=== PATIENT | female | born 1960 | race Caucasian/White ===

== ENCOUNTER → 2016-06-21 | Day surgery (SDC) | payer BC, OTHER ==
[2016-06-20 16:21] VITALS: Ht 163.8 cm; Wt 52.3 kg
[~2016-06-21] VITALS: Ht 163.8 cm; Wt 52.3 kg
[~2016-06-21] MED LIST: ATROPINE SULFATE 0.1 MG/ML 5ML SYR IV PRN; EpHEDrine SULFATE INJ 50 MG/ML AMP IV PRN; LEVO75TA5 PO; LIDOCAINE HCL 2% 2 ML VIAL (20MG/ML) ONE; MIDAZOLAM HCL 1 MG/ML 2ML VIAL ONE; MULT-506 PO; ONDANSETRON INJ 2 MG/ML 2 ML VIAL ONE; PROPOFOL IV EMULSION 10 MG/ML 20 ML VIAL IV ONE; SODIUM CHLORIDE 0.9% 500ML 500 ML IV ONE
[2016-06-21 12:42] VITALS: TEMP 36.5
--- NOTE | 2016-06-21 12:46 | Endo History and Physical ---
History & Physical Date of Service: Jun 21, 2016. Chief Complaint: rectal bleeding, abdominal pain, ulcerative colitis Referring Physician: Dr. Sarah Jennings History of Present Illness 55 yo CF who presents for colonoscopy secondary to rectal bleeding, abdominal pain and history of ulcerative colitis. Past Surgical History Hx Cardiac Surgery: No Hx Internal Defibrillator: No Hx Pacemaker: No Hx Abdominal Surgery: Yes (C SECTION X 3) Hx of Implantable Prosthesis: No Hx Post-Op Nausea and Vomiting: No Hx Cancer Surgery: No Hx Thoracic Surgery: No Hx Orthopedic: No Hx Urinary Tract Surgery: No Family History Colon CA Social History Smoking Status: Never Smoker Hx Substance Use: No Hx Alcohol Use: No Allergies Coded Allergies: No Known Allergies (Verified , 06/21/16) Current Medications Reported Home Medications Medications Dose Route/Sig Max Daily Dose Days Date Category Multivitamin (Multivitamins) Tab 1 Tab PO QAM 06/20/16 Reported Levothyroxine Sodium 75 Mcg Tab 1 Tab PO QAM 06/20/16 Reported Vital Signs Weight (Kilograms): 52.27 Height (Feet): 5 Height (Inches): 4.5 Date Time Temp Pulse Resp B/P Pulse Ox O2 Delivery O2 Flow Rate FiO2 06/21/16 12:42 36.5 77 18 120/74 98 Room Air Physical Exam General Appearance: WD/WN, no apparent distress Respiratory/Chest: Auscultation: breath sounds normal Cardiovascular: Heart Auscultation: RRR Abdomen: Bowel Sounds: normal Inspection & Palpation: soft, non-distended, no tenderness, guarding & rebound Assessment and Plan Assessment: 55 yo CF who presents for colonoscopy secondary to rectal bleeding, abdominal pain and history of ulcerative colitis. Plan: Proceed with colonoscopy.
--- NOTE | 2016-06-21 13:10 | Discharge Instructions ---
Endoscopy Patient Instructions Date / Procedure(s) Performed Jun 21, 2016. Colonoscopy Allergy Information Coded Allergies: No Known Allergies (Verified , 06/21/16) Discharge Date / Findings Jun 21, 2016. Ulcerative Proctosigmoiditis Internal hemorrhoids Medication Instructions OK to resume all medications today as prescribed Reported Home Medications Medications Dose Route/Sig Max Daily Dose Days Date Category Multivitamin (Multivitamins) Tab 1 Tab PO QAM 06/20/16 Reported Levothyroxine Sodium 75 Mcg Tab 1 Tab PO QAM 06/20/16 Reported Provider Instructions Activity Restrictions - No exercising or heavy lifting for 24 hours. - Do not drink alcohol the day of the procedure. - Do not drive a car or operate machinery until the day after the procedure. - Do not make any important decisions or sign important papers in 24 hours after the procedure. Following Day: - Return to full activity which may include returning to work/school. Diet Start your diet with liquids and light foods (jello, soup, juice, toast). Then eat your usual diet if not nauseated. Treatment For Common After Affects For mild abdominal pain, bloating, or excessive gas: - Rest - Eat lightly - Lie on right side Follow-Up Information Follow-up with Dr. Sarah Jennings as scheduled Anesthesia Information What You Should Know You have had a procedure that required some medicine to reduce anxiety and discomfort. This treatment is called moderate sedation. After receiving the treatment, you may be sleepy, but you will be able to breathe on your own. The effects of the treatment may last for several hours. Follow these instructions along with Activity/Diet recommendations noted above: * Do NOT do anything where dizziness or clumsiness would be dangerous. * Rest quietly at home today, then you can be up and about tomorrow. * Have a responsible person stay with you the rest of today. * You may have had an I.V. today. If so, you may take the dressing off later today. Recommendations Call your doctor if: * Trouble breathing * Continuous vomiting for more than 24 hours * Temperature above 101 degrees * Severe abdominal pain or bloating * Pain not relieved by pain medicine ordered * There is increased drainage or redness from any incision * A large amount of rectal bleeding greater than 2-3 tablespoons. (If you had a polyp/s removed or have hemorrhoids, a small amount of blood - from the rectum is to be expected.) * You have any unanswered questions or concerns. IN THE EVENT OF A SERIOUS EMERGENCY, GO TO THE NEAREST EMERGENCY ROOM Your discharge instructions were prepared by provider Jose Cheatham. Patient Instructions Signature Page Shona Leonard Patient (or Guardian) Signature/Date: I have read and understand the instructions given to me by my caregivers. Caregiver/RN/Doctor Signature/Date: The above-named patient and/or guardian has received patient instructions on this date. + Original Patient Signature Page (only) stays with chart. Please make copy for patient.
--- NOTE | 2016-06-21 13:19 | GI REPORT ---
Procedure Date: 06/21/2016 12:48 PM Procedure: Colonoscopy Indications: Rectal bleeding, Suspected ulcerative colitis Medicines: Monitored Anesthesia Care Complications: No immediate complications. Estimated Blood Loss: Estimated blood loss: none. Procedure: Pre-Anesthesia Assessment: - Prior to the procedure, a History and Physical was performed, and patient medications and allergies were reviewed. The patient's tolerance of previous anesthesia was also reviewed. The risks and benefits of the procedure and the sedation options and risks were discussed with the patient. All questions were answered, and informed consent was obtained. Prior Anticoagulants: The patient has taken no previous anticoagulant or antiplatelet agents. ASA Grade Assessment: II - A patient with mild systemic disease. After reviewing the risks and benefits, the patient was deemed in satisfactory condition to undergo the procedure. After I obtained informed consent, the scope was passed under direct vision. Throughout the procedure, the patient's blood pressure, pulse, and oxygen saturations were monitored continuously. The On-site loaner was introduced through the anus and advanced to the terminal ileum. The colonoscopy was performed without difficulty. The patient tolerated the procedure well. The quality of the bowel preparation was good. The terminal ileum, ileocecal valve, appendiceal orifice, and rectum were photographed. Findings: Inflammation characterized by erythema, friability and confluent ulcerations was found in a continuous and circumferential pattern from the rectum to the sigmoid colon. The proximal descending colon, the transverse colon, the ascending colon and the cecum were spared. This was severe in severity. Biopsies were taken with a cold forceps for histology. Several random biopsies were obtained with cold forceps for histology randomly in the entire colon. Non-bleeding internal hemorrhoids were found during retroflexion. The hemorrhoids were small. Impression: - Inflammation was found from the rectum to the sigmoid colon secondary to proctosigmoid ulcerative colitis. Biopsied. - Non-bleeding internal hemorrhoids. - Several random biopsies were obtained in the entire colon. Recommendation: - Resume previous diet. - Taper prednisone. - Use Asacol HD 800 mg 2 tabs PO TID. - Await pathology results. - Return to GI office as previously scheduled. Jose Cheatham DO 06/21/2016 1:17:40 PM This report has been signed electronically. Note Initiated On: 06/21/2016 12:48 PM I attest to the content of the Intraoperative Record and orders documented therein, exceptions below
--- NOTE | 2016-06-21 13:20 | Anesthesiology Progress Note ---
Anesthesia Post Op Note Date & Time Jun 21, 2016 at 13:19 Vital Signs Pain Intensity: 3 Vital Signs Past 12 Hours Date Time Temp Pulse Resp B/P Pulse Ox O2 Delivery O2 Flow Rate FiO2 06/21/16 13:13 81 16 109/70 98 Room Air 06/21/16 12:42 36.5 77 18 120/74 98 Room Air Notes Mental Status: alert / awake / arousable, participated in evaluation Pt Amnestic to Procedure: Yes Nausea / Vomiting: adequately controlled Pain: adequately controlled Airway Patency, RR, SpO2: stable & adequate BP & HR: stable & adequate Hydration State: stable & adequate Anesthetic Complications: no major complications apparent
[2016-06-21 13:42] VITALS: BP 117/62; PULSE 81; O2SAT 99
== END | disposition home or self-care (01) ==
LOC: C.GI 12:10
PROVIDERS: ATTEND Internal Medicine
DX: K62.5 Hemorrhage of anus and rectum (principal); K51.90 Ulcerative colitis, unspecified, without complications; K52.9 Noninfective gastroenteritis and colitis, unspecified; K64.8 Other hemorrhoids; R10.9 Unspecified abdominal pain; E03.9 Hypothyroidism, unspecified; J45.909 Unspecified asthma, uncomplicated; Z80.0 Family history of malignant neoplasm of digestive organs; Z68.1 Body mass index [BMI] 19.9 or less, adult

== ENCOUNTER 2023-08-09 16:35 | Inpatient (IN) ==
--- NOTE | 2023-08-09 16:58 | Emergency Department Note ---
Impression & Plan Symptomatic anemia, Ulcerative colitis with rectal bleeding, Acute blood loss anemia ED Provider Note NAME: SERGE ISSA AGE: 62 SEX: F : 1960 ARRIVES VIA: Walk-In INFORMANT: Patient ED PROVIDER(S): Alessandro Juarez MD CHIEF COMPLAINT: Shortnes of breathe referred. PLAN: Disposition: Admit MEDICAL DECISION MAKING: The patient is a pleasant 62-year-old woman with past medical history of ulcerative colitis presents to the emergency department via walk-in referred from her GI office for worsening shortness of breath over the course of months in the setting of having ongoing daily bloody stool in the setting of her history of ulcerative colitis. Patient reports having numerous hospitalizations over the past year where she was found to be anemic and received blood transfusions and treated for sepsis. She denies any fevers, chills, cough, congestion. She denies nausea or vomiting. Of note, the patient did arrive to emergency department during time of high volume, acuity and prolonged emergency department waiting times. Critical pathways initiated from triage. On evaluation the patient is fatigued appearing, mildly dyspneic appearing but no distress, afebrile with stable vital signs. O2 saturation 97% on room air. She has moderate pallor. Abdomen is nontender. WBC is normal limits. Platelets 610, likely reactive. H/H 4.5/17.7 without recent values for comparison. Chemistry without metabolic acidosis. BUN is not elevated. LFTs are unremarkable. Iron is low. CT of the abdomen pelvis was performed and demonstrates findings consistent with patient's IBD/ulcerative colitis. I reviewed with the patient including his severely low hemoglobin and patient was consented for transfusion. 2 units PRBCs ordered to transfuse. Patient agrees with plan for admission for further management. Case was discussed with Corbin Duffy [facility], with Dr. Reyes, [facility] hospitalist who will evaluate the patient for admission. Further management per admitting team. Triage Nursing notes reviewed and agree them. Prior/external medical records reviewed Vital Signs: reviewed Differential diagnosis: Diverticulosis, AVM, coagulopathy, colitis, inflammatory bowel disease, malignancy, Su-Turner tear, esophagitis, peptic ulcer disease, variceal bleed, gastritis, epistaxis, fissure, hemorrhoids, as well as other pathologies. ER treatment provided: See below. Diagnostics interpreted by me: ECG: NSR, 97 bpm, no ectopy, no overt ST elevation or depression. Cardiac Monitoring: An order for continuous cardiac monitoring was placed and demonstrated NSR, 97 bpm, no ectopy. Laboratory studies: See below Imaging studies: See below Consultation(s): Case was discussed with Corbin Duffy, [facility], with Dr. Reyes, [facility] hospitalist who will evaluate the patient for admission. HPI: The patient is a pleasant 62-year-old woman with past medical history of ulcerative colitis presents to the emergency department via walk-in referred from her GI office for worsening shortness of breath over the course of months in the setting of having ongoing daily bloody stool in the setting of her history of ulcerative colitis. Patient reports having numerous hospitalizations over the past year where she was found to be anemic and received blood transfusions and treated for sepsis. She denies any fevers, chills, cough, congestion. She denies nausea or vomiting. ROS: See above HPI for pertinent positives & negatives. A total of 10 systems reviewed and were otherwise negative. VITALS:See Below PHYSICAL EXAMINATION: GENERAL: Awake, alert, fatigued-appearing, in no distress HENT: Normocephalic, atraumatic. Oropharynx with dry mucous membranes and otherwise unremarkable. EYES: Normal conjunctiva. Sclera non-icteric. NECK: Supple. No nuchal rigidity. FROM. No JVD. RESPIRATORY: Clear to auscultation. Mildly dyspneic appearing but no acute distress. CARDIAC: Regular rate, normal rhythm. Extremities warm and well perfused. Pulses equal. ABDOMEN: Soft, non-distended. No tenderness to palpation. No rebound or guarding. No masses. MUSCULOSKELETAL: Chest examination reveals no tenderness. The back is symmetrical on inspection without obvious abnormality. There is no CVA tenderness to palpation. No joint edema. LOWER EXTREMITIES: Calves are equal size bilaterally and non-tender. No edema. No discoloration. NEURO: Normal sensorium. No sensory or motor deficits noted. SKIN: Moderate pallor. No rash or jaundice noted. ED COURSE: Critical Care: I have personally spent greater than 45 minutes of critical care time in the direct management of this patient. This includes bedside care, interpretation of diagnostic studies, and testing, discussion with consultants, patient, and family members, and other required patient management activities. This 45 minutes is in excess of all separately billable procedures. Alessandro Juarez MD Past Med/Surg History Problem List (Updated 08/10/23 @ 02:40 by Alessandro Juarez MD) Acute blood loss anemia (Acute) Hyponatremia Atrial fibrillation Ulcerative colitis with rectal bleeding (Acute) Symptomatic anemia (Acute) Ulcerative colitis Medical History (Updated 08/10/23 @ 02:40 by Alessandro Juarez MD) ADHD Rectal bleeding reason for upcoming procedure. Abdominal pain reason for upcoming procedure History of COVID-19 total of 5 times. last had 01/2022 cold symptoms. no current issues Ulcerative colitis Hypothyroidism Restless leg syndrome Asthma ALLERGY INDUCED ASTHMA Surgical History History of lateral meniscus repair of right knee History of bilateral tubal ligation History of section X 3 History of colonoscopy Family History Other No family history of adverse response to anesthesia Social History Smoking Status: Never smoker Second Hand Exposure: No; Do You Dip or Chew Tobacco: No; Tobacco Cessation Education Requested by Patient: No Hx Alcohol Use: No Hx Substance Use: No Preferred Language: Greenlandic Communication Ability: Effective Superintendent Production Required: No Beliefs That Will Affect Care: None Current Living Situation: Spouse Current Living Situation Comment: lives at home with Other Information That Helps Us Care for You: No Feels Safe at Home: Yes Safety Concerns: Feels Safe At This Time Assistive Devices: Denture - Lower Allergies Allergies Allergy/AdvReac Type Severity Reaction Status Date / Time No Known Allergies Allergy Verified 08/09/23 14:57 Home Meds Home Medications Medication Instructions Recorded Confirmed albuterol sulfate 90 mcg/actuation 1 inh inhalation QID PRN SHORT OF 04/29/18 08/09/23 breath activated powder inhaler BREATH levothyroxine 50 mcg tablet 50 mcg PO QAM 05/24/20 08/09/23 fexofenadine 60 mg-pseudoephedrine 1 tab PO Q12H PRN seasonal 08/08/22 08/09/23 ER 120 mg tablet,ext.release,12 hr allergies (Anna-D 12 Hour) dextroamphetamine-amphetamine 20 20 mg PO BID PRN When Working 08/09/23 08/09/23 mg tablet dicyclomine 10 mg capsule 20 mg PO QID PRN Abdominal Pain 08/09/23 08/09/23 famotidine 20 mg tablet 20 mg PO BID 08/09/23 08/09/23 metoprolol tartrate 50 mg tablet 50 mg PO BID 08/09/23 08/09/23 (Lopressor) pantoprazole 40 mg tablet,delayed 40 mg PO QAM 08/09/23 08/09/23 release vedolizumab 300 mg intravenous 0 mg IV Q8WK 08/09/23 08/09/23 solution (Entyvio) Results & Data (ED) Vital Signs Vital Signs - 24 hr 08/09/23 16:38 08/09/23 17:15 08/09/23 17:36 Temperature 36.8 C Temperature Source Temporal Artery Scan Pulse Rate 97 H 102 H Pulse Rhythm Pulse Strength Respiratory Rate 18 Respiratory Effort / Characteristics Non-Labored Respiratory Depth Normal Respiratory Pattern Regular Blood Pressure 125/74 Blood Pressure Mean 91 Blood Pressure Position Pulse Oximetry 100 98 Oxygen Delivery Method Room Air Room Air Sepsis Recent Fever Within 48 Hours No Sepsis New/Unexplained Change in Mental Status N/A Sepsis Action Taken by Nursing No Action Required 08/09/23 18:18 08/09/23 18:36 08/09/23 18:51 Temperature 37.2 C 37.4 C Temperature Source Oral Oral Pulse Rate 105 H 93 H 93 H Pulse Rhythm Regular Regular Regular Pulse Strength Normal Normal Normal Respiratory Rate 20 19 19 Respiratory Effort / Characteristics Respiratory Depth Respiratory Pattern Blood Pressure 112/70 113/71 116/71 Blood Pressure Mean 84 85 86 Blood Pressure Position Sitting Lying Lying Pulse Oximetry 100 99 100 Oxygen Delivery Method Sepsis Recent Fever Within 48 Hours Sepsis New/Unexplained Change in Mental Status Sepsis Action Taken by Nursing Laboratory Data 08/09/23 16:59 08/09/23 16:59 Lab Results 08/09/23 08/09/23 08/09/23 Range/Units 16:59 17:50 17:56 WBC 7.82 (4.8-10.8) K/ul RBC 2.57 L (4.20-5.40) M/uL Hgb 4.5 L* (12.0-16.0) g/dl POC Hgb 5.1 L* (12.0-16.0) g/dl Hct 17.7 L* (37.0-47.0) % POC Hct 15 L* (37-47) % MCV 68.9 L (80.0-100.0) fL MCH 17.5 L (25.0-34.0) pg MCHC 25.4 L (32.0-36.0) g/dL RDW Std Deviation 48.0 H (36.4-46.3) fL RDW Coeff of Makenna 19.6 H (11.5-14.5) % Plt Count 610 H (130-400) K/uL MPV 8.5 L (9.4-12.4) fL Immature Gran % (Auto) 0.8 % Neut % (Auto) 53.9 % Lymph % (Auto) 27.0 % [place] % (Auto) 10.2 % Eos % (Auto) 7.2 % Baso % (Auto) 0.9 % Reticulocyte % (Auto) 3.87 H (0.50-2.00) % Neut # (Auto) 4.22 (1.40-6.50) K/uL Lymph # (Auto) 2.11 (1.20-3.40) K/uL [place] # (Auto) 0.80 H (0.11-0.59) K/uL Eos # (Auto) 0.56 H (0.00-0.50) K/uL Baso # (Auto) 0.07 (0.00-0.20) K/uL Reticulocyte # 0.090 (0.020-0.100) 10^6/uL Immature Gran # (Auto) 0.06 (0.01-0.20) K/uL Absolute Nucleated RBC 0.11 (0.00-0.12) K/uL Nucleated RBC % (auto) 1.4 % Polychromasia 1+ Hypochromasia Present Microcytosis Present Stomatocytes 1+ PT 10.9 (9.0-12.0) Seconds INR 1.0 (0.9-1.1) APTT 23 (21-31) Seconds PTT Ratio 0.9 POC Sodium 133 L (135-144) mmol/L Sodium 132 L (136-145) mmol/L POC Potassium 4.0 (3.3-5.0) mmol/L Potassium 4.0 (3.5-5.1) mmol/L POC Chloride 99 L (101-112) mmol/L Chloride 101 (98-107) mmol/L Carbon Dioxide 24 (21-32) mmol/L POC Total CO2 24 (24-31) mmol/L Anion Gap 7 (3-11) POC Anion Gap 15.0 L (16-25) mmol/L POC BUN 9 (7-18) mg/dl BUN 10 (6-23) mg/dl Creatinine 0.84 (0.6-1.2) mg/dl POC Creatinine 0.9 (0.6-1.3) mg/dl Est Cr Clr Drug Dosing 61.5 ml/min Est GFR ( Amer) 87.6 ml/min Est GFR (Non-Af Amer) 75.5 ml/min BUN/Creatinine Ratio 11.9 (10-20) Glucose 143 H (70-99(Fasting)) mg/dl POC Glucose (other) 124 H (70-99) mg/dl Calcium 8.5 L (8.6-10.3) mg/dl POC Ioniz Calcium Keeley 1.12 (1.12-1.32) mmol/l Iron 16 L (35-150) mcg/dl Unsaturated IBC 374 H (155-355) mcg/dl Transferrin 297 (200-360) mg/dl Ferritin 11.4 (8-388) ng/ml Total Bilirubin 0.4 (0.2-1.0) mg/dl AST 13 (13-39) U/L ALT 14 (7-52) U/L Alkaline Phosphatase 122 H (34-104) U/L Troponin I High Sens 11.7 (0-14) pg/ml Total Protein 7.3 (6.0-8.3) gm/dl Albumin 2.9 L (3.4-5.0) gm/dl Globulin 4.4 H (2.5-4.0) gm/dl Albumin/Globulin Ratio 0.7 L (0.9-2) Blood Type O Positive Blood Type Recheck Antibody Screen NEGATIVE Crossmatch See Detail 08/09/23 Range/Units 18:02 WBC (4.8-10.8) K/ul RBC (4.20-5.40) M/uL Hgb (12.0-16.0) g/dl POC Hgb (12.0-16.0) g/dl Hct (37.0-47.0) % POC Hct (37-47) % MCV (80.0-100.0) fL MCH (25.0-34.0) pg MCHC (32.0-36.0) g/dL RDW Std Deviation (36.4-46.3) fL RDW Coeff of Makenna (11.5-14.5) % Plt Count (130-400) K/uL MPV (9.4-12.4) fL Immature Gran % (Auto) % Neut % (Auto) % Lymph % (Auto) % [place] % (Auto) % Eos % (Auto) % Baso % (Auto) % Reticulocyte % (Auto) (0.50-2.00) % Neut # (Auto) (1.40-6.50) K/uL Lymph # (Auto) (1.20-3.40) K/uL [place] # (Auto) (0.11-0.59) K/uL Eos # (Auto) (0.00-0.50) K/uL Baso # (Auto) (0.00-0.20) K/uL Reticulocyte # (0.020-0.100) 10^6/uL Immature Gran # (Auto) (0.01-0.20) K/uL Absolute Nucleated RBC (0.00-0.12) K/uL Nucleated RBC % (auto) % Polychromasia Hypochromasia Microcytosis Stomatocytes PT (9.0-12.0) Seconds INR (0.9-1.1) APTT (21-31) Seconds PTT Ratio POC Sodium (135-144) mmol/L Sodium (136-145) mmol/L POC Potassium (3.3-5.0) mmol/L Potassium (3.5-5.1) mmol/L POC Chloride (101-112) mmol/L Chloride (98-107) mmol/L Carbon Dioxide (21-32) mmol/L POC Total CO2 (24-31) mmol/L Anion Gap (3-11) POC Anion Gap (16-25) mmol/L POC BUN (7-18) mg/dl BUN (6-23) mg/dl Creatinine (0.6-1.2) mg/dl POC Creatinine (0.6-1.3) mg/dl Est Cr Clr Drug Dosing ml/min Est GFR ( Amer) ml/min Est GFR (Non-Af Amer) ml/min BUN/Creatinine Ratio (10-20) Glucose (70-99(Fasting)) mg/dl POC Glucose (other) (70-99) mg/dl Calcium (8.6-10.3) mg/dl POC Ioniz Calcium K[place]ley (1.12-1.32) mmol/l Iron (35-150) mcg/dl Unsaturated IBC (155-355) mcg/dl Transferrin (200-360) mg/dl Ferritin (8-388) ng/ml Total Bilirubin (0.2-1.0) mg/dl AST (13-39) U/L ALT (7-52) U/L Alkaline Phosphatase (34-104) U/L Troponin I High Sens (0-14) pg/ml Total Protein (6.0-8.3) gm/dl Albumin (3.4-5.0) gm/dl Globulin (2.5-4.0) gm/dl Albumin/Globulin Ratio (0.9-2) Blood Type Blood Type Recheck O Positive Antibody Screen Crossmatch Administered Medications Acetaminophen (Ofirmev) 1,000 mg in 100 mls @ 400 mls/hr IV Q8H PRN PRN Reason: pain(1-4),headache,fever Stop: 08/12/23 19:19 Last Infusion: 08/09/23 23:55 Dose: Infused Documented By: Admin: 08/09/23 23:37 Dose: 400 mls/hr Documented By: ROXY Morphine Sulfate (Morphine Sulfate 2 Mg/Ml Carp) 2 mg IV Q4H PRN PRN Reason: Pain(5+) Stop: 08/23/23 19:19 Last Admin: 08/10/23 01:25 Dose: 2 mg Documented By: Admin: 08/09/23 21:29 Dose: 2 mg Documented By: CHERY Ondansetron HCl (Ondansetron Inj 2 Mg/Ml 2 Ml Vial) 4 mg IV Q6H PRN PRN Reason: Nausea And Vomiting Stop: 09/08/23 21:16 Last Admin: 08/10/23 01:24 Dose: 4 mg Documented By: ROXY Discontinued Medications Ioversol (Optiray 320 100ml) 94 ml IV ONCE ONE Stop: 08/09/23 18:10 Last Admin: 08/09/23 18:09 Dose: 94 ml Documented By: ADI Methylprednisolone (Methylprednisolone 125 Mg/2 Ml Vial) 40 mg IV NOW STA Stop: 08/09/23 19:35 Last Admin: 08/09/23 20:39 Dose: 40 mg Documented By: CHERY Ondansetron HCl (Ondansetron Inj 2 Mg/Ml 2 Ml Vial) Confirm Administered Dose 4 mg .ROUTE .STK-MED ONE Stop: 08/09/23 21:27 Last Admin: 08/09/23 21:29 Dose: 4 mg Documented By: CHERY Imaging Data Radiologist's Impression: Chest X-Ray 08/09/23 16:45 XR chest 1V not portable CLINICAL HISTORY: Chest pain, nonspecific TECHNIQUE: Single frontal radiograph of the chest was obtained. Comparison: None available at the time of this dictation. FINDINGS: No lines and tubes are seen. The cardiomediastinal silhouette is normal. The lungs are clear. No evidence of pleural effusion or pneumothorax. IMPRESSION: No acute chest disease. ACT 112: Negative or not required by law. Electronically signed by: Saul Bryan M.D. 08/09/2023 5:13 PM Abdomen/Pelvis CT 08/09/23 17:54 CT abd pelvis IV con only CLINICAL HISTORY: anemia, UC TECHNIQUE: Helical axial images of the abdomen and pelvis were obtained and displayed. Automated dose lowering techniques and/or adjustment according to patient size were utilized for this exam. This exam was performed with intravenous contrast. CT DOSE: 560.1 mGy.cm COMPARISON: None available at the time of this dictation. FINDINGS: Lower chest: No acute abnormality. Liver: Unremarkable. No focal lesions are seen. Gallbladder and biliary tree: No calcified gallstones. Normal caliber wall. No intra- or extrahepatic biliary ductal dilation. Pancreas: Unremarkable, no focal lesions. Spleen: Unremarkable. Adrenals: Unremarkable. Kidneys and ureters: There is wedge-shaped hypoenhancement in the right kidney, possibly associated with cortical scars. Bladder: Unremarkable. Reproductive organs: Unremarkable. Bowel: Patient was then thickened colonic johnson are seen from the rectum to the cecum. Lymph nodes Retroperitoneal: Unremarkable. Pelvic: Unremarkable. Mesenteric: Subcentimeter lymph nodes are noted. Peritoneum: Increased vascularity is seen about the colon. No free fluid. Vessels: Unremarkable. Abdominal wall: Unremarkable. Bones: Degenerative changes in the visualized spine. IMPRESSION: Findings compatible with colitis, likely inflammatory in this patient with history of ulcerative colitis. ACT 112: Negative or not required by law. Electronically signed by: Saul Bryan M.D. 08/09/2023 7:00 PM Discharge Plan Visit Data Chief Complaint: Shortness of Breath/Dyspnea Stated Complaint: SOB, REF BY DOC ED Provider: Alessandro Juarez Discharge Problem: Symptomatic anemia, Ulcerative colitis with rectal bleeding, Acute blood loss anemia Patient Disposition: Admitted As Inpatient Discharge Instructions Interventions: ED Discharge Assessment Last Done: 08/09/23 21:57 Discharge Problem: Ulcerative colitis with rectal bleeding Qualifiers: Ulcerative colitis location: unspecified ulcerative colitis location Qualified Code(s): K51.911 - Ulcerative colitis, unspecified with rectal bleeding
--- NOTE | 2023-08-09 17:14 | XRay Report ---
XR chest 1V not portable CLINICAL HISTORY: Chest pain, nonspecific TECHNIQUE: Single frontal radiograph of the chest was obtained. Comparison: None available at the time of this dictation. FINDINGS: No lines and tubes are seen. The cardiomediastinal silhouette is normal. The lungs are clear. No evid ence of pleural effusion or pneumothorax. IMPRESSION: No acute chest disease. ACT 112: Negative or not required by law. Electronically signed by: Saul Bryan M.D. 08/09/2023 5:13 PM
[2023-08-09 17:27] LABS: Hematocrit (blood only) 17.7 % (37.0-47.0); Hemoglobin 4.5 g/dl (12.0-16.0); Mean Corpuscular Hemoglobin 17.5 pg (25.0-34.0); Mean Corpuscular Hgb Conc 25.4 g/dL (32.0-36.0); Mean Corpuscular Volume 68.9 fL (80.0-100.0); Mean Platelet Volume 8.5 fL (9.4-12.4); Nucleated RBC # (auto) 0.11 K/uL (0.00-0.12); Nucleated RBC % (auto) 1.4 %; Platelet Count 610 K/uL (130-400); RDW Coefficient of Variation 19.6 % (11.5-14.5); Red Blood Count 2.57 M/uL (4.20-5.40); White Blood Count 7.82 K/ul (4.8-10.8)
[2023-08-09 17:30] LABS: Albumin Globulin Ratio 0.7 (0.9-2); Albumin Level 2.9 gm/dl (3.4-5.0); BUN Creatinine Ratio 11.9 (10-20); Bilirubin,Total 0.4 mg/dl (0.2-1.0); Calcium 8.5 mg/dl (8.6-10.3); Creatinine Clr Calc Pharmacy 61.5 ml/min; Est GFR (African American) 87.6 ml/min; Est GFR (Non-African American) 75.5 ml/min; Globulin 4.4 gm/dl (2.5-4.0); Total Protein 7.3 gm/dl (6.0-8.3)
[2023-08-09 17:37] LABS: Troponin I High Sensitivity 11.7 pg/ml (0-14)
[2023-08-09 17:40] LABS: Partial Thromboplastin Ratio 0.9; Partial Thromboplastin Time 23 Seconds (21-31); Prothrombin Time 10.9 Seconds (9.0-12.0)
[2023-08-09 17:45] LABS: Basophils # (auto) 0.07 K/uL (0.00-0.20); Basophils % (auto) 0.9 %; Eosinophils # (auto) 0.56 K/uL (0.00-0.50); Eosinophils % (auto) 7.2 %; Hypochromasia Present; Immature Granulocytes # (auto) 0.06 K/uL (0.01-0.20); Immature Granulocytes % (auto) 0.8 %; Lymphocytes # (auto) 2.11 K/uL (1.20-3.40); Microcytosis Present; Monocytes % (auto) 10.2 %; Neutrophils # (auto) 4.22 K/uL (1.40-6.50); Neutrophils % (auto) 53.9 %; Polychromasia 1+; Stomatocytes 1+
[2023-08-09] MEDS ORDERED: SODIUM CHLORIDE 0.9% 250 ML IV PRN (17:46)
[2023-08-09 18:09] LABS: iSTAT Creatinine 0.9 mg/dl (0.6-1.3); iSTAT Hemoglobin 5.1 g/dl (12.0-16.0); iSTAT Ionized Calcium 1.12 mmol/l (1.12-1.32)
[2023-08-09] MEDS: OPTIRAY 320 100ml IV ONE (18:09)
[2023-08-09 18:26] LABS: Reticulocyte % 3.87 % (0.50-2.00); Reticulocytes # 0.09 10^6/uL (0.020-0.100)
[2023-08-09 18:28] LABS: Ferritin 11.4 ng/ml (8-388)
--- NOTE | 2023-08-09 18:48 | History & Physical Report ---
Date of Service August 09, 2023 Assessment & Plan (1) Symptomatic anemia: Plan: Admit to the PCU on telemetry Currently stable and asymptomatic at rest Was sent to the [facility] ED today from the GI clinic due to multiple complaints including ongoing shortness of breath and dyspnea on exertion, generalized fatigue, and ongoing bright red blood per the rectum Found to have a hemoglobin of 4.5, down from 11.4 as of 08/08/2022 CT of the abdomen pelvis with IV con is consistent with acute ulcerative colitis flare and was read as negative for other acute findings. Patient has been having symptoms consistent with Crohn's flare for multiple months, so this is not surprising that hemoglobin has continued to fall Was consented for blood and ordered a total of 3 units packed red blood cells in the emergency department Continue with transfusion at this time we will obtain post transfusion CBC after her third unit is complete, transfuse for hemoglobin of 8 or higher at this time as she is still having ongoing rectal bleeding Will start 40 mg IV Solu-Medrol 3 times daily with first dose on admission for UC flare Lower suspicion for upper GI bleed at this time as she has been without epigastric pain, nausea/vomiting, melanotic stool. For now we will continue 40 mg IV pantoprazole daily for ulcer prophylaxis GI consult has been placed Will start as needed IV Tylenol and IV morphine for pain N.p.o. with sips/chips for now Bilateral SCDs for DVT prophylaxis CBC, CMP, mag, PT/INR (2) Ulcerative colitis with rectal bleeding: Plan: Continue 40 mg IV Solu-Medrol 3 times daily for now GI consulted and placed Patient instructed to avoid NSAIDs moving forward Rest of care per symptomatic anemia plan (3) Atrial fibrillation: Plan: Patient reports that she was diagnosed with new onset atrial fibrillation at the beginning of this year Patient reports that she was started on an anticoagulant shortly after diagnosis but then had subsequent large GI bleed while in [place] Patient is currently on normal sinus rhythm, continue to monitor on telemetry for now Will obviously need to hold systemic anticoagulation at this time Could consider Holter monitor on discharge as there will need to be further discussions with cardiology moving forward for risk/benefits of systemic anticoagulation Will hold her oral metoprolol for now while n.p.o., if needed can start IV Lopressor, however, will need to be cautious with aggressively treating tachycardia on admission as she is experiencing mild reactive tachycardia with her hemoglobin of 4.5 (4) Hyponatremia: Plan: Sodium of 132 today, will chloride noted to be 99 Patient appears dehydrated and malnourished on exam, likely because her oral intake has been very poor with her ongoing gastrointestinal issues She is not on diuretics She does not appear volume overloaded Would monitor in a.m. sodium level after ongoing transfusions, continue workup if sodium is not improving (5) Hypothyroidism: Plan: Continue levothyroxine when able to resume p.o. intake (6) Acute blood loss anemia: Plan Patient was discussed with Dr. Reyes at the time of admission History of Present Illness Chief Complaint: SOB Primary Care Provider: Saturnino Warner PA-C Shona is a 62-year-old female with a past medical history significant for ulcerative colitis (has not yet started Entyvio transfusions due to multiple social/insurance issues over the past year), hypothyroidism, and reported diagnosis of atrial fibrillation at an outside hospital who was sent to the [facility] ED from the [facility] GI clinic on 08/09/2023 due to ongoing complaints of shortness of breath, ongoing rectal bleeding, and malaise. She was noted to be tachycardic on arrival at 102 but otherwise stable. Labs are significant for hemoglobin of 4.5 (down from 11.4 as of 08/08/2022), hematocrit of 17, MCV of 68, MCHC of 25, platelet count of 610, reticulocyte percentage of 3.7, sodium of 132, iron of 16, unsaturated iron binding capacity of 374. Chest x-ray was read as negative for acute findings. CT of the abdomen pelvis with IV Contrast was read as consistent with ulcerative colitis flare, but was read as otherwise negative for acute findings. EKG shows normal sinus rhythm with an age undetermined inferior infarct but was negative for acute ST segment or T wave changes. Prior to admission the patient was consented for blood and ordered on initial 3 units of packed red blood cells to be transfused. Patient was lying in bed at time of exam no acute distress, she appears very pale, her is sitting bedside, history is obtained from both. She explains that she had stopped taking her mesalamine because she did not feel as though it was helping. She reports that she was admitted to an outside hospital at the beginning of February 2023 and was diagnosed with new onset atrial fibrillation. She was reportedly started on anticoagulation and had a large GI bleed shortly after while in [place]. She has been off anticoagulation since. She confirms she has not been on any treatment for ulcerative colitis since beginning of this year as she has evidence for insurance issues. She has been having ongoing lower abdominal pain consistent with previous UC flares. When asked what she was using for pain control she explains that she tried Tylenol first but this was ineffective. She and her explained that the patient has been taking approximately 9 tabs of Advil daily for at least the past 2 weeks. I explained to her that she needs to avoid all NSAIDs with her history, she expressed understanding. Denies recent fever, chills, chest pain, cough, dysuria, hematuria, melena, and recent trauma. She has been experiencing significant dyspnea on exertion and bright red blood in her stool. She confirms multiple times that she has not had melanotic/dark stool. Denies recent nausea/vomiting/hematemesis. She is a full code and her is her primary decision-maker if she cannot make decisions for self. Please refer to Dr. Reyes's attestation for any changes to the treatment plan Allergies Allergy/AdvReac Type Severity Reaction Status Date / Time No Known Allergies Allergy Verified 08/09/23 14:57 Home Medications Medication Instructions Recorded Confirmed Type albuterol sulfate 90 mcg/actuation 1 inh inhalation QID PRN SHORT OF 04/29/18 08/09/23 History breath activated powder inhaler BREATH levothyroxine 50 mcg tablet 50 mcg PO QAM 05/24/20 08/09/23 History fexofenadine 60 mg-pseudoephedrine 1 tab PO Q12H PRN seasonal 08/08/22 08/09/23 History ER 120 mg tablet,ext.release,12 hr allergies (Anna-D 12 Hour) dextroamphetamine-amphetamine 20 20 mg PO BID PRN When Working 08/09/23 08/09/23 History mg tablet dicyclomine 10 mg capsule 20 mg PO QID PRN Abdominal Pain 08/09/23 08/09/23 History famotidine 20 mg tablet 20 mg PO BID 08/09/23 08/09/23 History metoprolol tartrate 50 mg tablet 50 mg PO BID 08/09/23 08/09/23 History (Lopressor) pantoprazole 40 mg tablet,delayed 40 mg PO QAM 08/09/23 08/09/23 History release vedolizumab 300 mg intravenous 0 mg IV Q8WK 08/09/23 08/09/23 History solution (Entyvio) Past Med/Surg History Problem List (Updated 08/09/23 @ 21:50 by Yury Reyes MD) Acute blood loss anemia Hyponatremia Atrial fibrillation Ulcerative colitis with rectal bleeding Symptomatic anemia Ulcerative colitis Medical History (Updated 08/09/23 @ 21:50 by Yury Reyes MD) ADHD Rectal bleeding reason for upcoming procedure. Abdominal pain reason for upcoming procedure History of COVID-19 total of 5 times. last had 01/2022 cold symptoms. no current issues Ulcerative colitis Hypothyroidism Restless leg syndrome Asthma ALLERGY INDUCED ASTHMA Surgical History History of lateral meniscus repair of right knee History of bilateral tubal ligation History of section X 3 History of colonoscopy Family History Other No family history of adverse response to anesthesia Social History Smoking Status: Never smoker Second Hand Exposure: Yes (hx - as a child); Do You Dip or Chew Tobacco: No; Hx Alcohol Use: Yes Alcohol type: wine Hx Substance Use: No Preferred Language: French Communication Ability: Effective Mapping Engineer Required: No Beliefs That Will Affect Care: None Current Living Situation: Family Feels Safe at Home: Yes Assistive Devices: Glasses Physical Exam Physical Exam: Physical Exam: General: In no acute distress, stated age, very pale and chronically ill a ppearing but non-toxic HEENT: Normocephalic, atraumatic, no scleral icterus, pupils around round, symmetrical, and reactive to light, pale palpebral conjunctivae, moist mucus membranes, trachea midline, no thyromegaly Chest/Pulm: No respiratory distress, symmetrical chest expansion, clear breath sounds throughout Cardiac: RRR, no murmurs noted Abdomen: Negative for ascites and bruising, normoactive bowel sounds, soft, tender to palpation in the BL lower abdominal park, otherwise non-tender, no rebound tenderness noted Musculoskeletal: Symmetrical and without signs of acute trauma, upper and lower extremities with full ROM, no atrophy, spasticity, or flaccidity Extremities: Radial, dorsalis pedis, and posterior tibial pulses are intact and symmetrical, no edema noted in the BL LE's Skin: Pale, dry, no rashes , lesions, or scars noted Neuro: Alert and oriented to person, place, month, year, and president, no focal defects, no tremors noted Psych: No acute distress, calm and cooperative during the exam Results & Data Results & Data Vital Signs (Past 12 Hours) Vital Signs Temp Pulse Resp BP Pulse Ox O2 Del Method 08/09/23 18:36 37.4 C 93 H 19 113/71 99 08/09/23 18:18 37.2 C 105 H 20 112/70 100 08/09/23 17:36 102 H 08/09/23 17:15 98 Room Air 08/09/23 16:38 36.8 C 97 H 18 125/74 100 Room Air Laboratory Results Abnormal lab results 08/09/23 08/09/23 08/09/23 Range/Units 16:59 17:50 17:56 RBC 2.57 L (4.20-5.40) M/uL Hgb 4.5 L* (12.0-16.0) g/dl POC Hgb 5.1 L* (12.0-16.0) g/dl Hct 17.7 L* (37.0-47.0) % POC Hct 15 L* (37-47) % MCV 68.9 L (80.0-100.0) fL MCH 17.5 L (25.0-34.0) pg MCHC 25.4 L (32.0-36.0) g/dL RDW Std Deviation 48.0 H (36.4-46.3) fL RDW Coeff of Maken[place] 19.6 H (11.5-14.5) % Plt Count 610 H (130-400) K/uL MPV 8.5 L (9.4-12.4) fL Reticulocyte % (Auto) 3.87 H (0.50-2.00) % [place] # (Auto) 0.80 H (0.11-0.59) K/uL Eos # (Auto) 0.56 H (0.00-0.50) K/uL POC Sodium 133 L (135-144) mmol/L Sodium 132 L (136-145) mmol/L POC Chloride 99 L (101-112) mmol/L POC Anion Gap 15.0 L (16-25) mmol/L Glucose 143 H (70-99(Fasting)) mg/dl POC Glucose (other) 124 H (70-99) mg/dl Calcium 8.5 L (8.6-10.3) mg/dl Iron 16 L (35-150) mcg/dl Unsaturated IBC 374 H (155-355) mcg/dl Alkaline Phosphatase 122 H (34-104) U/L Albumin 2.9 L (3.4-5.0) gm/dl Globulin 4.4 H (2.5-4.0) gm/dl Albumin/Globulin Ratio 0.7 L (0.9-2) Crossmatch See Detail Diagnostic Findings Chest X-Ray 08/09/23 16:45 XR chest 1V not portable CLINICAL HISTORY: Chest pain, nonspecific TECHNIQUE: Single frontal radiograph of the chest was obtained. Comparison: None available at the time of this dictation. FINDINGS: No lines and tubes are seen. The cardiomediastinal silhouette is normal. The lungs are clear. No evidence of pleural effusion or pneumothorax. IMPRESSION: No acute chest disease. ACT 112: Negative or not required by law. Electronically signed by: Saul Bryan M.D. 08/09/2023 5:13 PM Abdomen/Pelvis CT 08/09/23 17:54 CT abd pelvis IV con only CLINICAL HISTORY: anemia, UC TECHNIQUE: Helical axial images of the abdomen and pelvis were obtained and displayed. Automated dose lowering techniques and/or adjustment according to patient size were utilized for this exam. This exam was performed with intravenous contrast. CT DOSE: 560.1 mGy.cm COMPARISON: None available at the time of this dictation. FINDINGS: Lower chest: No acute abnormality. Liver: Unremarkable. No focal lesions are seen. Gallbladder and biliary tree: No calcified gallstones. Normal caliber wall. No intra- or extrahepatic biliary ductal dilation. Pancreas: Unremarkable, no focal lesions. Spleen: Unremarkable. Adrenals: Unremarkable. Kidneys and ureters: There is wedge-shaped hypoenhancement in the right kidney, possibly associated with cortical scars. Bladder: Unremarkable. Reproductive organs: Unremarkable. Bowel: Patient was then thickened colonic johnson are seen from the rectum to the cecum. Lymph nodes Retroperitoneal: Unremarkable. Pelvic: Unremarkable. Mesenteric: Subcentimeter lymph nodes are noted. Peritoneum: Increased vascularity is seen about the colon. No free fluid. Vessels: Unremarkable. Abdominal wall: Unremarkable. Bones: Degenerative changes in the visualized spine. IMPRESSION: Findings compatible with colitis, likely inflammatory in this patient with history of ulcerative colitis. ACT 112: Negative or not required by law. Electronically signed by: Saul Bryan M.D. 08/09/2023 7:00 PM ECG Additional Comments: Normal sinus rhythm Inferior infarct , age undetermined Abnormal ECG No previous ECGs available Code Status & VTE Plan Code Status Full code VTE Prophylaxis Plan VTE Prophylaxis will be ordered: Yes Supervising Physician Co-Signing Physician Notes I personally saw and examined the patient. I verified all espana points and agree with Corbin Duffy PA-C with the following exceptions and/or additions: 62 year old female with poorly compliant with ulcerative colitis treatment (trying to get her on Entyvio). Present to the ER on advice of her commercial illustrator for 2 weeks of progressive worsening shortness of breath and tiredness all the time. Noted to be significantly anemic in the ER. O/E Pale appearing, HS RRR, no murmurs, Chest CTAB, mild lower abdominal pain on palpation without distension or rigidity A/P Acute on chronic GI bleed, acute blood loss anemia - suspect due to her ulcerative colitis and will start solu-medrol 40mg IV q8h and consult GI, Aim Hgb > 7, transfuse 3 units and repeat level. PG Care Time/CCT Total # of Minutes Spent Total Time Spent with Patient: Total time spent is greater than 50% in coordination of care (as documented) at patient's floor/unit and/or counseling patient: Coding [place] [address] INT INP/OBS CARE 3/75MIN Patient Type Established Medical Decision Making High Complexity Diagnoses Symptomatic anemia D64.9 Ulcerative colitis with rectal bleeding K51.911 Atrial fibrillation I48.91 Hyponatremia E87.1 Hypothyroidism E03.9 Acute blood loss anemia D62
--- NOTE | 2023-08-09 19:03 | CT Scan Report ---
CT abd pelvis IV con only CLINICAL HISTORY: anemia, UC TECHNIQUE: Helical axial images of the abdomen and pelvis were obtained and displayed. Automated dose lowering techniques and/or adjustment according to patient size were utilized for this exam. This e xam was performed with intravenous contrast. CT DOSE: 560.1 mGy.cm COMPARISON: None available at the time of this dictation. FINDINGS: Lower chest: No acute abnormality. Liver: Unremarkable. No focal lesions are seen. Gallbladder and biliary tree: No calcified gallstones. Normal caliber wall. No intra- or extrahepatic biliary ductal dilation. Pancreas: Unremarkable, no focal lesions. Spleen: Unremarkable. Adrenals: Unremarkable. Kidneys and ureters: There is wedge-shaped hypoenhancement in the right kidney, possibly associated w ith cortical scars. Bladder: Unremarkable. Reproductive organs: Unremarkable. Bowel: Patient was then thickened colonic johnson are seen from the rectum to the cecum. Lymph nodes Retroperitoneal: Unremarkable. Pelvic: Unremarkable. Mesenteric: Subcentimeter lymph nodes are noted. Peritoneum: Increased vascularity is seen about the colon. No free fluid. Vessels: Unremarkable. Abdominal wall: Unremarkable. Bones: Degenerative changes in the visualized spine. IMPRESSION: Findings compatible with colitis, likely inflammatory in this patient with history of ulcerative coli tis. ACT 112: Negative or not required by law. Electronically signed by: Saul Bryan M.D. 08/09/2023 7:00 PM
[2023-08-09] MEDS: methylPREDNISolone 125 MG/2 ML VIAL IV STA (20:39)
[2023-08-09] MEDS: ONDANSETRON INJ 2 MG/ML 2 ML VIAL ONE (21:29)
[2023-08-09] MEDS: MoRPHine SULFATE 2 MG/ML CARP IV PRN (21:29)
[2023-08-09] MEDS: ACETAMINOPHEN 1,000 MG/100 ML VIAL IV PRN (23:37)
[2023-08-10] MEDS: ONDANSETRON INJ 2 MG/ML 2 ML VIAL IV PRN (01:24)
[2023-08-10 03:58] LABS: Albumin Globulin Ratio 0.7 (0.9-2); Albumin Level 2.8 gm/dl (3.4-5.0); BUN Creatinine Ratio 13.5 (10-20); Bilirubin,Total 1.3 mg/dl (0.2-1.0); Calcium 8.3 mg/dl (8.6-10.3); Creatinine Clr Calc Pharmacy 72.7 ml/min; Est GFR (African American) 102.1 ml/min; Est GFR (Non-African American) 88.1 ml/min; Globulin 4.3 gm/dl (2.5-4.0); Magnesium 2.1 mg/dl (1.7-2.4); Potassium 4.1 mmol/L (3.5-5.1); Total Protein 7.1 gm/dl (6.0-8.3)
[2023-08-10 04:02] LABS: Prothrombin Time 10.9 Seconds (9.0-12.0)
[2023-08-10 04:26] LABS: Hematocrit (blood only) 25.8 % (37.0-47.0); Hemoglobin 7.9 g/dl (12.0-16.0); Mean Corpuscular Hemoglobin 22.6 pg (25.0-34.0); Mean Corpuscular Hgb Conc 30.6 g/dL (32.0-36.0); Mean Corpuscular Volume 73.9 fL (80.0-100.0); Mean Platelet Volume 8.5 fL (9.4-12.4); Nucleated RBC # (auto) 0.08 K/uL (0.00-0.12); Nucleated RBC % (auto) 2.1 %; Platelet Count 442 K/uL (130-400); RDW Coefficient of Variation 21.1 % (11.5-14.5); RDW Standard Deviation 56.4 fL (36.4-46.3); Red Blood Count 3.49 M/uL (4.20-5.40); White Blood Count 3.84 K/ul (4.8-10.8)
[2023-08-10] MEDS ORDERED: SODIUM CHLORIDE 0.9% 250 ML IV PRN ×2 (05:25→05:26)
--- NOTE | 2023-08-10 07:21 | Electrocardiogram Report ---
Test Reason : Blood Pressure : / mmHG Vent. Rate : 097 BPM Atrial Rate : 097 BPM P-R Int : 142 ms QRS Dur : 078 ms QT Int : 356 ms P-R-T Axes : 071 -25 041 degrees QTc Int : 452 ms Normal sinus rhythm possible Inferior infarct , age undetermined Abnormal ECG No previous ECGs available Confirmed by John Paul Briones ([id number]) on 08/10/2023 7:21:04 AM Referred By: Irineo Cano Confirmed By:Donovan Briones
[2023-08-10] MEDS: methylPREDNISolone 40 MG in SYRINGE 0 ML IV SCH (08:32)
[2023-08-10] MEDS ORDERED: methylPREDNISolone 125 MG/2 ML VIAL IV SCH (09:00)
[2023-08-10 10:32] LABS: Hemoglobin 9.3 g/dl (12.0-16.0); Mean Corpuscular Hemoglobin 23.4 pg (25.0-34.0); Mean Corpuscular Volume 75.4 fL (80.0-100.0); Mean Platelet Volume 8.3 fL (9.4-12.4); Nucleated RBC # (auto) 0.09 K/uL (0.00-0.12); Nucleated RBC % (auto) 1.1 %; Platelet Count 426 K/uL (130-400); RDW Coefficient of Variation 19.9 % (11.5-14.5); RDW Standard Deviation 53.8 fL (36.4-46.3); Red Blood Count 3.98 M/uL (4.20-5.40)
[2023-08-10] MEDS ORDERED: PANTOprazole 40 MG in SYRINGE 0 ML IV SCH (11:00)
[2023-08-10] MEDS: PANTOprazole 40 MG in SYRINGE 0 ML IV SCH (12:17)
[2023-08-10] MEDS ORDERED: 1.2 MICRON FILTER 1 EACH IV ONE (13:48)
--- NOTE | 2023-08-10 14:56 | Hospitalist Progress Note ---
Date of Service August 10, 2023 Assessment & Plan (1) Symptomatic anemia: Plan: Patient found to have profoundly low hemoglobin upon arrival to ED on 08/09/2023 of 4.5. She was experiencing symptoms related to anemia including SOB, dyspnea on exertion, fatigue, BRBPR. She was also consuming a large amount of NSAIDs, up to 9 Advil per day for her abdominal pain but endorsed no melena, N/V. -PCU on telemtry -Reviewed labs 08/09: hgb 9.3, plt 426, INR 1 -reviewed iron panel 08/08: Fe 16, transferrin 297, ferritin 11.4 -reviewed CTAP 08/08: consistent with UC flare and negative for any other acute findings. -s/p 3 units PRBCs -IV tylenol and IV morphine as needed for pain -Patient's diet was advanced to as tolerated -will plan to repeat CBC and CMP in AM. (2) Ulcerative colitis with rectal bleeding: Plan: Patient with previous diagnosis of UC and follows with [facility] GI outpatient. Patient currently awaiting Entyvio approval. She was previously on mesalamine but did not feel it helped her symptoms so she stopped taking it. -s/p colonoscopy 07/2022: left sided UC. inflammation found from rectum to descending colon (severe) -GI recommending IV Remicade inpatient -Follow up with nurse navigator on 08/10 for recommendations regarding outpatient medication approval -Entyvio has not been approved by patients insurance thus far. She has been waiting on this for many months now and states her insurance changed in process. -Avoid NSAIDs completely moving forward -Continue 40mg IV Solu-Medrol 3 times daily -Monitor stool for worsening BRB (3) Atrial fibrillation: Plan: Per patient, she was diagnosed with new onset A fib in 02/2023. She was started on anticoagulation but then developed large GI bleed at hospital in [place]. -Hold anticoagulation in event of ongoing GI bleeding -Consider Holter monitor upon discharge and cardiology discussion regarding risks/benefits of systemic anticoagulation -Patient placed back on regular diet and can resume metoprolol 08/10. (4) Hyponatremia: Plan: Likely due to dehydration and malnourishment. Oral intake has been very poor with ongoing GI issues. -Reviewed sodium 08/09: decreased at 130 -ordered AM BMP for 08/10 (5) Hypothyroidism: Plan: Will resume levothyroxine 50mcg daily on 08/10. Plan Discussed case with GI. Diet: regular DVT prophylaxis: bilateral SCDs Code status: full Disposition: PCU on telemetry Admission and Anticipated Discharge Date Admission Date: August 09, 2023 Subjective Patient seen and examined this afternoon at bedside. Patient was tearful at time of encounter. She reports to be not feeling well since about 12/2022. She states she has been in and out of hospital for various infections and anemia. She had 4 bowel movements today. The 1st two did contain blood but states latest 2 bowel movements were brown in color. She states any time she eats she defecates. She is still reporting shortness of breath w/w/o exertion. She was stable at 96 O2 sat on room air. She did report abdominal pain that is slightly worse than typical. She does experience abdominal pain on a daily basis. Case was discussed with GI who is recommending IV Remicade inpatient. Physical Exam 2 Constitutional: WD/WN, vitals as above Eyes: PERRL, conjunctivae normal, anicteric sclerae ENMT: external ear and nose normal, oropharynx normal Respiratory: normal respiratory effort, lungs clear to auscultation Cardiovascular: RRR, no murmur, no edema Gastrointestinal (Abdomen): + bowel sounds, tenderness to palpation in lower abdominal quadrants. Skin: no rashes, warm and dry Neurologic: PERRL, EOMI, accommodation nl, no face palsy, no dysarthria Psychiatric: A+Ox3, euthymic affect Results & Data Results & Data Vital Signs (Past 12 Hours) Vital Signs Temp Pulse Pulse Resp BP BP Pulse Ox 08/10/23 11:38 36.4 C L 93 H 18 110/78 96 08/10/23 08:53 100 H 08/10/23 08:30 36.6 C 79 18 121/84 100 08/10/23 08:10 36.6 C 79 18 121/84 100 08/10/23 07:33 37.0 C 84 13 128/76 100 08/10/23 07:10 37 C 84 18 125/70 100 08/10/23 06:40 37 C 84 17 128/76 100 08/10/23 06:15 36.4 C 88 17 113/85 99 08/10/23 06:05 36.4 C L 79 18 133/92 99 O2 Del Method O2 Flow Rate 08/10/23 11:38 Room Air 08/10/23 08:53 08/10/23 08:30 0 08/10/23 08:10 08/10/23 07:33 Room Air 08/10/23 07:10 08/10/23 06:40 08/10/23 06:15 08/10/23 06:05 Laboratory Results 08/10/23 10:06 08/10/23 03:07 Diagnostic Findings Chest X-Ray 08/09/23 16:45 XR chest 1V not portable IMPRESSION: No acute chest disease. Electronically signed by: Saul Bryan M.D. 08/09/2023 5:13 PM Abdomen/Pelvis CT 08/09/23 17:54 CT abd pelvis IV con only IMPRESSION: Findings compatible with colitis, likely inflammatory in this patient with history of ulcerative colitis. Electronically signed by: Saul Bryan M.D. 08/09/2023 7:00 PM PG Care Time/CCT Total # of Minutes Spent Total Time Spent with Patient: Total time spent is greater than 50% in coordination of care (as documented) at patient's floor/unit and/or counseling patient: Coding Level of Care Code 86320 SUB INP/OBS CARE 3/50MIN Diagnoses Symptomatic anemia D64.9 Ulcerative colitis with rectal bleeding K51.911 Ulcerative colitis location: unspecified ulcerative colitis location Atrial fibrillation, unspecified type I48.91 Atrial fibrillation type: unspecified Hyponatremia E87.1 Hypothyroidism, unspecified type E03.9 Hypothyroidism type: unspecified (2) Ulcerative colitis with rectal bleeding Ulcerative colitis location: unspecified ulcerative colitis location Qualified Code(s): K51.911 - Ulcerative colitis, unspecified with rectal bleeding (3) Atrial fibrillation Atrial fibrillation type: unspecified Qualified Code(s): I48.91 - Unspecified atrial fibrillation (5) Hypothyroidism Hypothyroidism type: unspecified Qualified Code(s): E03.9 - Hypothyroidism, unspecified
--- NOTE | 2023-08-10 19:02 | XRay Report ---
KUB HISTORY: Acute generalized abdominal pain worsening abdominal pain COMPARISON: CT 08/09/2023 FINDINGS: Air-filled loops of large and small bowel are noted with small bowel loops measuring up to 3.4 cm. No renal calculi. No ureteral calculi. No pneumoperitoneum or pneumatosis. Mild lumbar levos coliosis. No fracture. IMPRESSION: Air-filled loops of large and small bowel suggestive of probable ileus. No pneumoperitoneum. ACT 112: Negative or not required by law. The above report was generated using voice recognition software. It may contain grammatical, syntax o r spelling errors. Electronically signed by: Kali Núñez M.D. 08/10/2023 7:00 PM
[2023-08-10 20:32] LABS: Hematocrit (blood only) 29.3 % (37.0-47.0); Hemoglobin 9.3 g/dl (12.0-16.0); Mean Corpuscular Hemoglobin 23.7 pg (25.0-34.0); Mean Corpuscular Hgb Conc 31.7 g/dL (32.0-36.0); Mean Corpuscular Volume 74.6 fL (80.0-100.0); Mean Platelet Volume 8.5 fL (9.4-12.4); Nucleated RBC % (auto) 1.1 %; Platelet Count 434 K/uL (130-400); RDW Coefficient of Variation 19.8 % (11.5-14.5); RDW Standard Deviation 53.3 fL (36.4-46.3); Red Blood Count 3.93 M/uL (4.20-5.40)
[2023-08-10] MEDS: MoRPHine SULFATE 2 MG/ML CARP IV STA (20:45)
[2023-08-10] MEDS: PROCHLORPERAZINE 10 MG in SYRINGE 8 ML IV ONE (20:56)
[2023-08-11 01:13] LABS: Hematocrit (blood only) 29.1 % (37.0-47.0); Mean Corpuscular Hemoglobin 23.1 pg (25.0-34.0); Mean Corpuscular Hgb Conc 30.9 g/dL (32.0-36.0); Mean Corpuscular Volume 74.8 fL (80.0-100.0); Mean Platelet Volume 8.6 fL (9.4-12.4); Nucleated RBC # (auto) 0.09 K/uL (0.00-0.12); Nucleated RBC % (auto) 1.1 %; Platelet Count 380 K/uL (130-400); RDW Coefficient of Variation 20.1 % (11.5-14.5); RDW Standard Deviation 53.6 fL (36.4-46.3); Red Blood Count 3.89 M/uL (4.20-5.40); White Blood Count 7.95 K/ul (4.8-10.8)
[2023-08-11] MEDS: LEVOTHYROXINE SODIUM 50 MCG TABLET PO SCH (05:40)
[2023-08-11 07:23] LABS: Hematocrit (blood only) 28.3 % (37.0-47.0); Hemoglobin 8.8 g/dl (12.0-16.0); Mean Corpuscular Hemoglobin 23.3 pg (25.0-34.0); Mean Corpuscular Hgb Conc 31.1 g/dL (32.0-36.0); Mean Corpuscular Volume 75.1 fL (80.0-100.0); Mean Platelet Volume 8.8 fL (9.4-12.4); Platelet Count 365 K/uL (130-400); RDW Coefficient of Variation 20.4 % (11.5-14.5); RDW Standard Deviation 54.2 fL (36.4-46.3); Red Blood Count 3.77 M/uL (4.20-5.40); White Blood Count 9.98 K/ul (4.8-10.8)
[2023-08-11 07:43] LABS: Albumin Globulin Ratio 0.6 (0.9-2); Albumin Level 2.7 gm/dl (3.4-5.0); BUN Creatinine Ratio 16.9 (10-20); Bilirubin,Total 0.4 mg/dl (0.2-1.0); Calcium 8.8 mg/dl (8.6-10.3); Creatinine Clr Calc Pharmacy 75.8 ml/min; Est GFR (African American) 107.3 ml/min; Est GFR (Non-African American) 92.6 ml/min; Globulin 4.3 gm/dl (2.5-4.0)
--- NOTE | 2023-08-11 13:15 | Hospitalist Progress Note ---
Date of Service August 11, 2023 Assessment & Plan (1) Symptomatic anemia: Plan: Patient found to have profoundly low hemoglobin upon arrival to ED on 08/09/2023 of 4.5. She was experiencing symptoms related to anemia including SOB, dyspnea on exertion, fatigue, BRBPR. She was also consuming a large amount of NSAIDs, up to 9 Advil per day for her abdominal pain but endorsed no melena, N/V. -PCU on telemtry -Reviewed labs 08/10: hgb 8.8, MCV 75.1, plt 365 -hgb downtrended to 8.8 overnight. Plan to repeat hgb at 1400. -reviewed iron panel 08/10: Fe 15, transferrin sat 4%, TIBC 334 -reviewed CTAP 08/08: consistent with UC flare and negative for any other acute findings. -evening of 08/09, patient reported more severe abdominal pain. Ordered KUB which reviewed and revealed concerning findings of ileus but no free air visualized -dose of IV Venofer given 08/10 due to iron deficiency anemia -s/p 3 units PRBCs -IV tylenol and IV morphine as needed for pain -Patient on regular diet -will plan to repeat CBC and CMP in AM. (2) Ulcerative colitis with rectal bleeding: Plan: Patient with previous diagnosis of UC and follows with [facility] GI outpatient. Patient currently awaiting Entyvio approval. She was previously on mesalamine but did not feel it helped her symptoms so she stopped taking it. -s/p colonoscopy 07/2022: left sided UC. inflammation found from rectum to descending colon (severe) -GI recommending IV Remicade inpatient - pharmacy states medication will be too expensive for patient, will hold off on this. -Follow up with nurse navigator on 08/10 for recommendations regarding outpatient medication approval -Entyvio has not been approved by patients insurance thus far. She has been waiting on this for many months now and states her insurance changed in process. -GI to reach out to office on 08/10 to see status of Entyvio infusions -Avoid NSAIDs completely moving forward -Continue 40mg IV Solu-Medrol 3 times daily -Monitor stool for worsening bright red blood (3) Atrial fibrillation: Plan: Per patient, she was diagnosed with new onset A fib in 02/2023. She was started on anticoagulation but then [facility] [place]. -Hold anticoagulation in event of ongoing GI bleeding -Consider Holter monitor upon discharge and cardiology discussion regarding risks/benefits of systemic anticoagulation -Patient placed back on regular diet and resumed metoprolol 08/10. (4) Hyponatremia: Plan: Likely due to dehydration and malnourishment. Oral intake has been very poor with ongoing GI issues. -Reviewed sodium 08/10: improved to 132 Will continue to monitor on daily AM labs Plan Chronic conditions: Hypothyroidism: levothyroxine 50mcg daily Discussed case with GI. Diet: regular DVT prophylaxis: bilateral SCDs Code status: full Disposition: PCU on telemetry Admission and Anticipated Discharge Date Admission Date: August 09, 2023 Subjective Patient seen and examined this morning at bedside. She reports minimal improvement in her symptoms today. She has had 3 bloody BM's this morning. She states everytime she eats she will have a BM. Despite this she does report her appetite has been good. She states she had an episode of vomiting last night following her dinner. She believes she ate too fast. She denied hematemesis/coffee-ground emesis. She continues to experience significant abdominal pain. She states morphine does help her symptoms and if she uses it prior to eating, she notes she can tolerate her diet more. She denies chest pain/shortness of breath. Physical Exam 2 Constitutional: WD/WN, vitals as above Eyes: PERRL, conjunctivae normal, anicteric sclerae ENMT: external ear and nose normal, oropharynx normal Respiratory: normal respiratory effort, lungs clear to auscultation Cardiovascular: RRR, no murmur, no edema Gastrointestinal (Abdomen): +bowel sounds, generalized tenderness to palpation Skin: no rashes, warm and dry Neurologic: PERRL, EOMI, accommodation nl, no face palsy, no dysarthria Psychiatric: A+Ox3, euthymic affect Results & Data Results & Data Vital Signs (Past 12 Hours) Vital Signs Temp Pulse Resp BP Pulse Ox O2 Del Method 08/11/23 11:34 37.0 C 92 H 18 135/88 97 Room Air 08/11/23 07:26 36.9 C 91 H 18 137/88 97 Room Air 08/11/23 02:23 36.4 C L 83 18 134/85 98 Room Air Laboratory Results 08/11/23 07:01 08/11/23 07:01 Diagnostic Findings KUB X-Ray 08/10/23 17:58 IMPRESSION: Air-filled loops of large and small bowel suggestive of probable ileus. No pneumoperitoneum. Electronically signed by: Kali Núñez M.D. 08/10/2023 7:00 PM PG Care Time/CCT Total # of Minutes Spent Total Time Spent with Patient: Total time spent is greater than 50% in coordination of care (as documented) at patient's floor/unit and/or counseling patient: Coding Level of Care Code 79080 SUB INP/OBS CARE 3/50MIN Diagnoses Symptomatic anemia D64.9 Ulcerative colitis with rectal bleeding K51.911 Ulcerative colitis location: unspecified ulcerative colitis location Atrial fibrillation, unspecified type I48.91 Atrial fibrillation type: unspecified Hyponatremia E87.1 (2) Ulcerative colitis with rectal bleeding Ulcerative colitis location: unspecified ulcerative colitis location Qualified Code(s): K51.911 - Ulcerative colitis, unspecified with rectal bleeding (3) Atrial fibrillation Atrial fibrillation type: unspecified Qualified Code(s): I48.91 - Unspecified atrial fibrillation
[2023-08-11] MEDS: IRON SUCROSE 200 MG in 0.9 % SODIUM CHLORIDE 100 ML IV ONE (14:06)
[2023-08-11 14:31] LABS: Hematocrit (blood only) 29.9 % (37.0-47.0); Hemoglobin 9.2 g/dl (12.0-16.0); Mean Corpuscular Hemoglobin 23.3 pg (25.0-34.0); Mean Corpuscular Hgb Conc 30.8 g/dL (32.0-36.0); Mean Corpuscular Volume 75.7 fL (80.0-100.0); Mean Platelet Volume 8.6 fL (9.4-12.4); Nucleated RBC # (auto) 0.06 K/uL (0.00-0.12); Nucleated RBC % (auto) 0.6 %; Platelet Count 339 K/uL (130-400); RDW Standard Deviation 55.5 fL (36.4-46.3); Red Blood Count 3.95 M/uL (4.20-5.40); White Blood Count 10.23 K/ul (4.8-10.8)
[2023-08-11] MEDS: METOPROLOL TARTRATE 25 MG TAB PO SCH (20:29)
[2023-08-12 08:00] LABS: Hematocrit (blood only) 30.9 % (37.0-47.0); Hemoglobin 9.4 g/dl (12.0-16.0); Mean Corpuscular Hemoglobin 23.4 pg (25.0-34.0); Mean Corpuscular Hgb Conc 30.4 g/dL (32.0-36.0); Mean Corpuscular Volume 77.1 fL (80.0-100.0); Nucleated RBC # (auto) 0.09 K/uL (0.00-0.12); Nucleated RBC % (auto) 0.8 %; Platelet Count 317 K/uL (130-400); RDW Coefficient of Variation 21.6 % (11.5-14.5); RDW Standard Deviation 57.9 fL (36.4-46.3); Red Blood Count 4.01 M/uL (4.20-5.40); White Blood Count 10.92 K/ul (4.8-10.8)
[2023-08-12 08:05] LABS: Albumin Globulin Ratio 0.7 (0.9-2); Albumin Level 2.8 gm/dl (3.4-5.0); Bilirubin,Total 0.3 mg/dl (0.2-1.0); Calcium 8.9 mg/dl (8.6-10.3); Creatinine Clr Calc Pharmacy 89.7 ml/min; Est GFR (African American) 114.8 ml/min; Est GFR (Non-African American) 99.1 ml/min; Globulin 4.1 gm/dl (2.5-4.0); Total Protein 6.9 gm/dl (6.0-8.3)
[2023-08-12] MEDS ORDERED: oxyCODONE HCL IR 5 MG TAB (IMMEDIATE RELEASE) PO PRN (08:11)
[2023-08-12] MEDS ORDERED: ACETAMINOPHEN 500 MG TAB PO PRN (08:17)
--- NOTE | 2023-08-12 12:50 | Gastrointestinal Consultation ---
Date of Consultation August 10, 2023 Assessment & Plan (1) Ulcerative colitis with rectal bleeding: Active ulcerative colitis. The patient needs to begin biological therapy. The GI office will check the approval status of Entyvio which was already ordered. Perhaps first dose can be administered while still in the hospital on Saturday, August 11. In the meantime continue intravenous Solu-Medrol for the next 24 hours and then switch to oral prednisone with the dose of 40 mg to be tapered by 10 mg every 7 to 10 days. Advance diet to regular. Hold nonsteroidals. Hold anticoagulation. (2) Symptomatic anemia: The patient has received 2 units of packed red blood cells with improvement of hemoglobin to 7.9. I would recommend intravenous iron administration. Injectafer 750 mg x 2 doses in 1 week intervals or Venofer 200 mg x 5 doses in 1 week intervals. Monitor H&H. (3) Acute blood loss anemia: The patient received blood transfusions. Continue with intravenous iron replenishment. Monitor H&H. History of Present Illness Reason for Consultation: Ulcerative colitis. Severe anemia related to chronic blood loss from ulcerative colitis. Attending Physician: Eligio Wisdom History of Present Illness The patient was diagnosed with chronic left-sided ulcerative colitis. First documented on colonoscopy in 2018. For at least 6 months she has had daily rectal bleeding, diarrhea and lower abdominal pain. The most recent colonoscopy in July 2022 showed left-sided ulcerative colitis. In the past treated with mesalamine with no improvement. Several courses of steroids were given in the past. The patient was about to start treatment with vedolizumab however due to insuran ce issues the treatment has not been started yet. 1 year ago QuantiFERON gold, hepatitis B surface antigen and HIV were negative. The patient has been progressively fatigued and weak. She was transferred to the emergency room with hemoglobin 4.5 Over the last 6 months the patient's had several hospitalizations in various hospitals outside the area because of ongoing rectal bleeding, anemia, sepsis and atrial fibrillation. Atrial fibrillation was diagnosed several months ago however she could not start anticoagulation due to ongoing bleeding which necessitated blood transfusions. The patient was taking significant amount of nonsteroidals for abdominal pain, up to 9 Advils per day. The patient was admitted yesterday, received 2 units of packed red blood cells with improvement of symptoms and improvement in hemoglobin to 7.9. Started on Solu-Medrol intravenously. Allergies Allergy/AdvReac Type Severity Reaction Status Date / Time No Known Allergies Allergy Verified 08/09/23 14:57 Home Medications Medication Instructions Recorded Confirmed Type albuterol sulfate 90 mcg/actuation 1 inh inhalation QID PRN SHORT OF 04/29/18 08/09/23 History breath activated powder inhaler BREATH levothyroxine 50 mcg tablet 50 mcg PO QAM 05/24/20 08/09/23 History fexofenadine 60 mg-pseudoephedrine 1 tab PO Q12H PRN seasonal 08/08/22 08/09/23 History ER 120 mg tablet,ext.release,12 hr allergies (Anna-D 12 Hour) dextroamphetamine-amphetamine 20 20 mg PO BID PRN When Working 08/09/23 08/09/23 History mg tablet dicyclomine 10 mg capsule 20 mg PO QID PRN Abdominal Pain 08/09/23 08/09/23 History famotidine 20 mg tablet 20 mg PO BID 08/09/23 08/09/23 History metoprolol tartrate 50 mg tablet 50 mg PO BID 08/09/23 08/09/23 History (Lopressor) pantoprazole 40 mg tablet,delayed 40 mg PO QAM 08/09/23 08/09/23 History release vedolizumab 300 mg intravenous 0 mg IV Q8WK 08/09/23 08/09/23 History solution (Entyvio) Patient History Medical History ADHD Rectal bleeding reason for upcoming procedure. Abdominal pain reason for upcoming procedure History of COVID-19 total of 5 times. last had 01/2022 cold symptoms. no current issues Ulcerative colitis Hypothyroidism Restless leg syndrome Asthma ALLERGY INDUCED ASTHMA Surgical History History of lateral meniscus repair of right knee History of bilateral tubal ligation History of section X 3 History of colonoscopy Family History Other No family history of adverse response to anesthesia Social History Smoking Status: Never smoker Second Hand Exposure: No; Do You Dip or Chew Tobacco: No; Tobacco Cessation Education Requested by Patient: No Hx Alcohol Use: No Hx Substance Use: No Preferred Language: Greek Communication Ability: Effective Wool Hat Flanger Required: No Beliefs That Will Affect Care: None Current Living Situation: Spouse Current Living Situation Comment: lives at home with Other Information That Helps Us Care for You: No Feels Safe at Home: Yes Safety Concerns: Feels Safe At This Time Assistive Devices: Denture - Lower Review of Systems Constitutional: Profound fatigue, About 6 pound weight loss. Respiratory: Shortness of breath with minimal exertion. Denies cough or hemoptysis. Cardiovascular: Additional Comments: Complains of irregular heartbeats and palpitation. Denies chest pain. Gastrointestinal: See history of present illness. Physical Exam Physical Exam: Awake and comfortable. ENMT: Oral mucosa normal, neck is supple, no neck mass. Respiratory: No wheezing, lungs clear bilaterally. Cardiovascular: Irregular, no murmur. Gastrointestinal (Abdomen): Abdomen is soft with mild lower abdominal tenderness on deep palpation, no guarding, no rebound. Skin: Pale, no rash. Neurologic: Oriented x 3, no focal abnormalities, speech is intact. Results & Data Vital Signs (Past 12 Hours) Vital Signs Temp Pulse Pulse Resp BP BP Pulse Ox 08/10/23 08:53 100 H 08/10/23 08:30 36.6 C 79 18 121/84 100 08/10/23 08:10 36.6 C 79 18 121/84 100 08/10/23 07:33 37.0 C 84 13 128/76 100 08/10/23 07:10 37 C 84 18 125/70 100 08/10/23 06:40 37 C 84 17 128/76 100 08/10/23 06:15 36.4 C 88 17 113/85 99 08/10/23 06:05 36.4 C L 79 18 133/92 99 08/10/23 02:35 37.0 C 87 18 119/70 100 08/10/23 02:05 36.8 C 84 18 122/74 97 08/09/23 23:21 70 08/09/23 23:15 37.0 C 86 20 118/70 97 08/09/23 23:11 37.1 C 92 H 20 120/73 98 08/09/23 22:49 37.2 C 85 20 124/75 98 08/09/23 22:34 37.4 C 95 H 20 123/83 97 08/09/23 22:26 37.2 C 95 H 20 123/83 97 08/09/23 22:26 Pulse Ox O2 Del Method O2 Del Method O2 Flow Rate 08/10/23 08:53 08/10/23 08:30 0 08/10/23 08:10 08/10/23 07:33 Room Air 08/10/23 07:10 08/10/23 06:40 08/10/23 06:15 08/10/23 06:05 08/10/23 02:35 Room Air 08/10/23 02:05 08/09/23 23:21 08/09/23 23:15 08/09/23 23:11 08/09/23 22:49 08/09/23 22:34 08/09/23 22:26 Room Air 08/09/23 22:26 97 Room Air Laboratory Results Lab data were reviewed. (1) Ulcerative colitis with rectal bleeding Ulcerative colitis location: unspecified ulcerative colitis location Qualified Code(s): K51.911 - Ulcerative colitis, unspecified with rectal bleeding
--- NOTE | 2023-08-12 12:53 | Communication Note ---
Date of Service: August 10, 2023 Due to ongoing symptomatic ulcerative colitis with significant bleeding, multiple hospitalizations due to severe anemia and indications for anticoagulation the patient does need to start urgently with biological therapy. As discussed with the hospital staff infliximab is on the formulary at [facility]. Will start infliximab 300 mg IV infusion today. rn support services will be consulted to arrange for insurance clearance for a follow-up ongoing therapy with infliximab.
--- NOTE | 2023-08-12 12:54 | Gastroenterology Progress Note ---
Date of Service August 11, 2023 Assessment & Plan (1) Acute blood loss anemia: (2) Ulcerative colitis with rectal bleeding: Plan 1. Active ulcerative colitis with significant blood loss and profound iron deficiency anemia. Would recommend infliximab 10 mg/kg IV infusion. Administration of infliximab was initially ordered yesterday but due to high cost of inpatient therapy will postpone initiation of treatment until next week preferably as an outpatient. The GI office will arrange for necessary insurance approvals in the coming days. Begin intravenous iron administration with Venofer 200 mg weekly for 5 to 6 weeks. Changed to oral prednisone 40 mg a day with tapering of 10 mg/week. Admission and Anticipated Discharge Date Admission Date: August 09, 2023 Subjective The patient is feeling better. Much less fatigued. Continues with diarrhea and blood in stool. Complains of abdominal pain after eating. 1 episode of vomiting. Overall not much improvement in bloody diarrhea with intravenous steroids. Iron studies consistent with significant iron deficiency. Hemoglobin 8.8 today. Review of Systems Review of Systems: Review of the systems unchanged from yesterday. Results & Data Vital Signs (Past 12 Hours) Vital Signs Temp Pulse Resp BP Pulse Ox O2 Del Method 08/11/23 07:26 36.9 C 91 H 18 137/88 97 Room Air 08/11/23 02:23 36.4 C L 83 18 134/85 98 Room Air Laboratory Results Reviewed (2) Ulcerative colitis with rectal bleeding Ulcerative colitis location: unspecified ulcerative colitis location Qualified Code(s): K51.911 - Ulcerative colitis, unspecified with rectal bleeding
[2023-08-12] MEDS: oxyCODONE HCL IR 5 MG TAB (IMMEDIATE RELEASE) PO PRN (13:03)
--- NOTE | 2023-08-12 13:22 | Hospitalist Progress Note ---
Date of Service August 12, 2023 Assessment & Plan (1) Symptomatic anemia: Plan: Hgb 4.5 on arrival to ED on 08/09/2023. She was experiencing SOB, dyspnea on exertion, fatigue, BRBPR. She was also consuming a large amount of NSAIDs, up to 9 Advil per day for her abdominal pain but endorsed no melena, N/V. -s/p 3 units PRBCs -dose of IV Venofer given 08/10 due to iron deficiency anemia - GI recommending weekly transfusions - CTAP 08/08: consistent with UC flare and negative for any other acute findings. -evening of 08/09, patient reported more severe abdominal pain. Ordered KUB which reviewed and revealed concerning findings of ileus but no free air visualized Pain control switched to PO tylenol and oxycodone -Patient on regular diet -will plan to repeat CBC and CMP in AM. (2) Ulcerative colitis with rectal bleeding: Plan: Patient with previous diagnosis of UC and follows with [facility] GI outpatient. Patient currently awaiting [employer] approval. She was previously on mesalamine but did not feel it helped her symptoms so she stopped taking it. -s/p colonoscopy 07/2022: left sided UC. inflammation found from rectum to descending colon (severe) GI Consulted - recommending IV Remicade inpatient - pharmacy states medication will be too expensive for patient,not given. - Steroid taper starting at prednisone 40mg daily - weaning by 5mg weekly - Calcium and Vit D supplementatio started - GI office working on Entyvio approval -Avoid NSAIDs completely moving forward (3) Atrial fibrillation: Plan: Per patient, she was diagnosed with new onset A fib in 02/2023. She was started on anticoagulation but then developed large GI bleed at hospital in [place]. -Hold anticoagulation in event of ongoing GI bleeding -Consider Holter monitor upon discharge and cardiology discussion regarding risks/benefits of systemic anticoagulation - continue metoprolol, SR on monitor (4) Hyponatremia: Plan: Likely due to dehydration and malnourishment. Oral intake has been very poor with ongoing GI issues. Continues to improve Will continue to monitor on daily AM labs Plan Chronic conditions: Hypothyroidism: levothyroxine 50mcg daily, check TSH Discussed case with GI. DVT prophylaxis: bilateral SCDs, avoid chemical proph with GI bleed Disposition:continued inpatient stay, suspect discharge in the next 24-48hrs Admission and Anticipated Discharge Date Admission Date: August 09, 2023 Supervising Physician Co-Signing Physician Notes PA Supervision Note: I did not personally see or examine the patient today, but I verified all espana points of JENNY Calderon's assessment and plan with the following exceptio ns/additions: None Subjective Patient resting in bed at time of my exam, around 11am. Had not been seen by GI yet today. Still having blood in her bowel movements but states this is not new for her Still with abdominal pain but improving Tele SR PACs 60s Review of Systems Review of Systems: All systems reviewed & are unremarkable except as noted in Subjective Physical Exam Physical Exam: General: NAD, VS as above Resp: normal respiratory effort, lungs clear to auscultation CV: RRR, no murmur, Abd: normal bowel sounds, + LLQ tenderness Extremities: Moves all extremities, no edema Neuro: A&O x3, Results & Data Results & Data Vital Signs (Past 12 Hours) Vital Signs Temp Pulse Pulse Resp BP Pulse Ox O2 Del Method 08/12/23 11:11 36.7 C 67 18 145/91 H 97 Room Air 08/12/23 09:04 66 08/12/23 07:14 36.7 C 74 18 130/84 99 Room Air 08/12/23 02:53 36.6 C 71 18 145/89 H 100 Room Air Laboratory Results CBC and chemistry reviewed PG Care Time/CCT Total # of Minutes Spent Total Time Spent with Patient: Total time spent is greater than 50% in coordination of care (as documented) at patient's floor/unit and/or counseling patient: Coding Level of Care Code 39765 SUB INP/OBS CARE 3/50MIN Diagnoses Symptomatic anemia D64.9 Ulcerative colitis with rectal bleeding K51.911 Ulcerative colitis location: unspecified ulcerative colitis location Atrial fibrillation, unspecified type I48.91 Atrial fibrillation type: unspecified Hyponatremia E87.1 (2) Ulcerative colitis with rectal bleeding Ulcerative colitis location: unspecified ulcerative colitis location Qualified Code(s): K51.911 - Ulcerative colitis, unspecified with rectal bleeding (3) Atrial fibrillation Atrial fibrillation type: unspecified Qualified Code(s): I48.91 - Unspecified atrial fibrillation
--- NOTE | 2023-08-12 13:34 | Gastroenterology Progress Note ---
Date of Service August 12, 2023 Assessment & Plan (1) Ulcerative colitis: Plan: -Continue IV Solumedrol; Will need Prednisone taper on discharge beginning at 40 mg daily x 1 week, then decreasing by 5 mg weekly over the course of 8 weeks. Consider vitamin D & calcium supplement while on high dose corticosteroids. -Continue to monitor H/H -Please note that attempts at initiating the patient on Entyvio have been underwent for nearly one year, however the Entyvio Connect Nurse noted that the patient would not answer her phone to coordinate care and had delayed completion of income paperwork necessary to enroll in the assistance program to subsidize the drug cost. Coupled with multiple no-show visits in the outpatient setting resulting in near dismissal from the practice, the patient has not been able to begin a maintenance therapy. Now that the patient is on board with treatment planning, our staff is working to expedite the process moving forward. Admission and Anticipated Discharge Date Admission Date: August 09, 2023 Supervising Physician Co-Signing Physician Notes The patient is improving, diarrhea is decreasing. Hemoglobin 9.4. Agree with the treatment plan. Switch to p.o. prednisone 40 mg a day on discharge and taper by 10 mg every 7 to 10 days. Hopefully vedolizumab will be initiated as an outpatient later this week. Subjective Patient is a 62 yo female with Ulcerative Colitis. She is currently on IV Solumedrol. She notes improvement of her symptoms, but is not back at her baseline. H/H is 9.4/30.9. No new complaints. She is tolerating a diet. C diff testing negative. Review of Systems Gastrointestinal: + diarrhea/loose stools; no abdominal pa in Physical Exam Constitutional: well developed Respiratory: normal respiratory effort Gastrointestinal (Abdomen): normal bowel sounds, soft, nontender, no hepatosplenomegaly Psychiatric: Orientation: alert and oriented x 3 Results & Data Results & Data Vital Signs (Past 12 Hours) Vital Signs Temp Pulse Pulse Resp BP Pulse Ox O2 Del Method 08/12/23 11:11 36.7 C 67 18 145/91 H 97 Room Air 08/12/23 09:04 66 08/12/23 07:14 36.7 C 74 18 130/84 99 Room Air 08/12/23 02:53 36.6 C 71 18 145/89 H 100 Room Air PG Care Time/CCT Total # of Minutes Spent Total Time Spent with Patient: Total time spent is greater than 50% in coordination of care (as documented) at patient's floor/unit and/or counseling patient: Coding Level of Care Code 77222 SUB INP/OBS CARE MIN Diagnoses Ulcerative colitis K51.90
[2023-08-12] MEDS: CALCIUM 600MG + VIT D 400 IU TAB PO SCH (20:47)
[2023-08-13 06:08] LABS: Hematocrit (blood only) 30.6 % (37.0-47.0); Hemoglobin 9.4 g/dl (12.0-16.0); Mean Corpuscular Hgb Conc 30.7 g/dL (32.0-36.0); Mean Corpuscular Volume 78.1 fL (80.0-100.0); Mean Platelet Volume 8.7 fL (9.4-12.4); Nucleated RBC # (auto) 0.03 K/uL (0.00-0.12); Nucleated RBC % (auto) 0.3 %; Platelet Count 277 K/uL (130-400); RDW Coefficient of Variation 22.8 % (11.5-14.5); RDW Standard Deviation 61.3 fL (36.4-46.3); Red Blood Count 3.92 M/uL (4.20-5.40); White Blood Count 10.26 K/ul (4.8-10.8)
[2023-08-13 06:21] LABS: Albumin Globulin Ratio 0.7 (0.9-2); Albumin Level 2.7 gm/dl (3.4-5.0); Bilirubin,Total 0.3 mg/dl (0.2-1.0); Calcium 8.6 mg/dl (8.6-10.3); Creatinine Clr Calc Pharmacy 76.9 ml/min; Est GFR (African American) 109.1 ml/min; Est GFR (Non-African American) 94.2 ml/min; Globulin 3.9 gm/dl (2.5-4.0); Potassium 3.8 mmol/L (3.5-5.1); Total Protein 6.6 gm/dl (6.0-8.3)
[2023-08-13 06:36] LABS: Thyroid Stimulating Hormone 4.304 uIu/ml (0.300-4.500)
[2023-08-13] MEDS: predniSONE 20 MG TAB PO SCH (08:18)
--- NOTE | 2023-08-13 09:45 | Gastroenterology Progress Note ---
Date of Service August 13, 2023 Assessment & Plan (1) Ulcerative colitis with rectal bleeding: Plan: 62 year old male with history of UC to transition to Entyvio admitted with a flare of her symptoms initially improving on IV steroids now w/ some return of her symptoms as she transitions to PO steroids Please track your BMs Prednisone 40 mg daily x 1 week, then decreasing by 5 mg weekly over the course of 8 weeks Consider vitamin D & calcium supplement while on high dose corticosteroids. Can continue Bentyl Trend H&H Continue with plan for OP Entyvio I spent a total of 30 minutes on the date of service in review of patient's record, and previously obtained information in person and appropriate medical visit, discussion and education of plan, with patient and/or caregiver, placing orders for tests/referral/procedures as medically necessary and documentation of pertinent clinical information in patient's medical records for their visit today. Admission and Anticipated Discharge Date Admission Date: August 09, 2023 Subjective Pt was seen and evaluated, chart reviewed. She notes she was transitioned from IV prednisone to oral prednisone. With this she has noted some return in diarrhea, abd cramping and even blood. She is unable to quantify how many BMs or how much blood she has seen. No nausea, vomiting. Review of Systems Review of Systems: All other findings negative except as noted in HPI. Physical Exam Constitutional: WD/WN, vitals as above Respiratory: normal respiratory effort, lungs clear to auscultation Cardiovascular: RRR, no murmur, no edema Gastrointestinal (Abdomen): Inspection/Auscultation: abdomen normal to inspection and normal bowel sounds Percussion/Palpation: + abdomen tender and abdomen soft; no guarding and abdomen not rigid Skin: no rashes, warm and dry Results & Data Vital Signs (Past 12 Hours) Vital Signs Temp Pulse Pulse Resp BP Pulse Ox O2 Del Method 08/13/23 07:13 36.7 C 61 18 142/86 H 99 Room Air 08/13/23 02:31 36.6 C 60 18 140/88 98 Room Air 08/12/23 23:54 68 08/12/23 22:51 36.7 C 66 18 154/90 H 100 Room Air Laboratory Results 08/13/23 Range/Units 05:36 WBC 10.26 (4.8-10.8) K/ul RBC 3.92 L (4.20-5.40) M/uL Hgb 9.4 L (12.0-16.0) g/dl Hct 30.6 L (37.0-47.0) % MCV 78.1 L (80.0-100.0) fL MCH 24.0 L (25.0-34.0) pg MCHC 30.7 L (32.0-36.0) g/dL RDW Std Deviation 61.3 H (36.4-46.3) fL RDW Coeff of Makenna 22.8 H (11.5-14.5) % Plt Count 277 (130-400) K/uL MPV 8.7 L (9.4-12.4) fL Absolute Nucleated RBC 0.03 (0.00-0.12) K/uL Nucleated RBC % (auto) 0.3 % Sodium 132 L (136-145) mmol/L Potassium 3.8 (3.5-5.1) mmol/L Chloride 100 (98-107) mmol/L Carbon Dioxide 28 (21-32) mmol/L Anion Gap 4 (3-11) BUN 14 (6-23) mg/dl Creatinine 0.70 (0.6-1.2) mg/dl Est Cr Clr Drug Dosing 76.9 ml/min Est GFR ( Amer) 109.1 ml/min Est GFR (Non-Af Amer) 94.2 ml/min BUN/Creatinine Ratio 20.0 (10-20) Glucose 86 (70-99(Fasting)) mg/dl Calcium 8.6 (8.6-10.3) mg/dl Total Bilirubin 0.3 (0.2-1.0) mg/dl AST 13 (13-39) U/L ALT 13 (7-52) U/L Alkaline Phosphatase 102 (34-104) U/L Total Protein 6.6 (6.0-8.3) gm/dl Albumin 2.7 L (3.4-5.0) gm/dl Globulin 3.9 (2.5-4.0) gm/dl Albumin/Globulin Ratio 0.7 L (0.9-2) TSH 4.304 (0.300-4.500) uIu/ml (1) Ulcerative colitis with rectal bleeding Ulcerative colitis location: unspecified ulcerative colitis location Qualified Code(s): K51.911 - Ulcerative colitis, unspecified with rectal bleeding
--- NOTE | 2023-08-13 10:15 | Gastroenterology Progress Note ---
Date of Service August 13, 2023 Assessment & Plan (1) Ulcerative colitis with rectal bleeding: Plan: 62 year old female with UC admitted w/ flare, who notes some return of loose stools, bleeding with transition from IV to oral prednisone Please document and track BMs Continue prednisone taper for now, 40 mg daily x 1 week, then decreasing by 5 mg weekly over the course of 8 weeks Consider vitamin D & calcium supplement while on high dose corticosteroids. Continue to monitor H/H Plan for OP GI follow up with her regular team and plan for Entyvio I spent a total of 30 minutes on the date of service in review of patient's record, and previously obtained information in person and appropriate medical visit, discussion and education of plan, with patient and/or caregiver, placing orders for tests/referral/procedures as medically necessary and documentation of pertinent clinical information in patient's medical records for their visit today. Admission and Anticipated Discharge Date Admission Date: August 09, 2023 Supervising Physician Co-Signing Physician Notes Improving ulcerative colitis. Anticipated discharge tomorrow. Anticipated Vedolizumab infusion later in the week. Subjective Pt was seen and evaluated, chart reviewed Notes was transition from IV to oral steroids Had some return of her loose stools, blood in stools. Unable to quantify number of BMs Review of Systems Review of Systems: All other findings negative except as noted in HPI. Physical Exam Constitutional: WD/WN, vitals as above Respiratory: normal respiratory effort, lungs clear to auscultation Cardiovascular: Rate/Rhythm: regular rate and regular rhythm Gastrointestinal (Abdomen): Inspection/Auscultation: abdomen normal to inspection and normal bowel sounds Skin: no rashes, warm and dry Results & Data Results & Data Vital Signs (Past 12 Hours) Vital Signs Temp Pulse Pulse Resp BP Pulse Ox O2 Del Method 08/13/23 08:00 68 08/13/23 07:13 36.7 C 61 18 142/86 H 99 Room Air 08/13/23 02:31 36.6 C 60 18 140/88 98 Room Air 08/12/23 23:54 68 08/12/23 22:51 36.7 C 66 18 154/90 H 100 Room Air Laboratory Results 08/13/23 Range/Units 05:36 WBC 10.26 (4.8-10.8) K/ul RBC 3.92 L (4.20-5.40) M/uL Hgb 9.4 L (12.0-16.0) g/dl Hct 30.6 L (37.0-47.0) % MCV 78.1 L (80.0-100.0) fL MCH 24.0 L (25.0-34.0) pg MCHC 30.7 L (32.0-36.0) g/dL RDW Std Deviation 61.3 H (36.4-46.3) fL RDW Coeff of Makenna 22.8 H (11.5-14.5) % Plt Count 277 (130-400) K/uL MPV 8.7 L (9.4-12.4) fL Absolute Nucleated RBC 0.03 (0.00-0.12) K/uL Nucleated RBC % (auto) 0.3 % Sodium 132 L (136-145) mmol/L Potassium 3.8 (3.5-5.1) mmol/L Chloride 100 (98-107) mmol/L Carbon Dioxide 28 (21-32) mmol/L Anion Gap 4 (3-11) BUN 14 (6-23) mg/dl Creatinine 0.70 (0.6-1.2) mg/dl Est Cr Clr Drug Dosing 76.9 ml/min Est GFR ( Amer) 109.1 ml/min Est GFR (Non-Af Amer) 94.2 ml/min BUN/Creatinine Ratio 20.0 (10-20) Glucose 86 (70-99(Fasting)) mg/dl Calcium 8.6 (8.6-10.3) mg/dl Total Bilirubin 0.3 (0.2-1.0) mg/dl AST 13 (13-39) U/L ALT 13 (7-52) U/L Alkaline Phosphatase 102 (34-104) U/L Total Protein 6.6 (6.0-8.3) gm/dl Albumin 2.7 L (3.4-5.0) gm/dl Globulin 3.9 (2.5-4.0) gm/dl Albumin/Globulin Ratio 0.7 L (0.9-2) TSH 4.304 (0.300-4.500) uIu/ml PG Care Time/CCT Total # of Minutes Spent Total Time Spent with Patient: Total time spent is greater than 50% in coordination of care (as documented) at patient's floor/unit and/or counseling patient: Coding Level of Care Code 71914 SUB INP/OBS CARE MIN Diagnoses Ulcerative colitis with rectal bleeding K51.911 Ulcerative colitis location: unspecified ulcerative colitis location (1) Ulcerative colitis with rectal bleeding Ulcerative colitis location: unspecified ulcerative colitis location Qualified Code(s): K51.911 - Ulcerative colitis, unspecified with rectal bleeding
[2023-08-13] MEDS: PANTOprazole 40 MG TAB PO SCH (10:32)
[2023-08-13] MEDS: IRON SUCROSE 300 MG in SODIUM CHLORIDE 0.9% 250 ML IV ONE (10:32)
--- NOTE | 2023-08-13 11:55 | Hospitalist Progress Note ---
Date of Service August 13, 2023 Assessment & Plan (1) Symptomatic anemia: Plan: Hgb 4.5 on arrival to ED on 08/09/2023. She was experiencing SOB, dyspnea on exertion, fatigue, BRBPR. She was also consuming a large amount of NSAIDs, up to 9 Advil per day for her abdominal pain but endorsed no melena, N/V. -s/p 3 units PRBCs -dose of IV Venofer given 08/10 due to iron deficiency anemia. Second dose 08/12 - GI recommending weekly transfusions - CTAP 08/08: consistent with UC flare and negative for any other acute findings. -evening of 08/09, patient reported more severe abdominal pain. Ordered KUB which reviewed and revealed concerning findings of ileus but no free air visualized Pain control switched to scheduled tylenol and oxycodone prn. Morphine discontinued. -Patient on regular diet -AM CBC (2) Ulcerative colitis with rectal bleeding: Plan: Patient with previous diagnosis of UC and follows with [facility] GI outpatient. Patient currently awaiting [employer] approval. She was previously on mesalamine but did not feel it helped her symptoms so she stopped taking it. -s/p colonoscopy 07/2022: left sided UC. inflammation found from rectum to descending colon (severe) GI Consulted - recommending IV Remicade inpatient - pharmacy states medication will be too expensive for patient,not given. - Steroid taper starting at prednisone 40mg daily - weaning by 5mg weekly - Calcium and Vit D supplementatio started - GI office working on Entyvio approval -Avoid NSAIDs completely moving forward (3) Atrial fibrillation: Plan: Per patient, she was diagnosed with new onset A fib in 02/2023. She was started on anticoagulation but then developed large GI bleed at hospital in [place]. -Hold anticoagulation in event of ongoing GI bleeding -Consider Holter monitor upon discharge and cardiology discussion regarding risks/benefits of systemic anticoagulation - has followed with [facility] cardiology in the past - continue metoprolol, SR on monitor (4) Hyponatremia: Plan: Likely due to dehydration and malnourishment. Oral intake has been very poor with ongoing GI issues. Continues to improve Will continue to monitor on daily AM labs Plan Chronic conditions: Hypothyroidism: levothyroxine 50mcg daily, checked TSH-normal at 4.3 DVT prophylaxis: bilateral SCDs, avoid chemical proph with GI bleed Disposition:continued inpatient stay, suspect discharge in the next 24-48hrs when pain is controlled . Downgrade to medcial Admission and Anticipated Discharge Date Admission Date: August 09, 2023 Supervising Physician Co-Signing Physician Notes PA Supervision Note: I did not personally see or examine the patient today, but I verified all espana points of JENNY Calderon's assessment and plan with the following exceptions/additions: None Subjective Patient seen while eating lunch, reports pain is better today, but had rough pain last night. Discussed pain regiment that she would be able to go home with. thinks shes had 5 bowel movements so far today, + blood Tolerating food without worsening pain Review of Systems Review of Systems: All systems reviewed & are unremarkable except as noted in Subjective Physical Exam Physical Exam: General: NAD, VS as above Resp: normal respiratory effort, lungs clear to auscultation CV: RRR, no murmur, Abd: normal bowel sounds, tenderness much improved from yesterday Extremities: Moves all extremities, no edema Neuro: A&O x3, Results & Data Results & Data Vital Signs (Past 12 Hours) Vital Signs Temp Pulse Pulse Resp BP Pulse Ox O2 Del Method 08/13/23 10:54 37.0 C 67 18 115/61 97 Room Air 08/13/23 08:00 68 08/13/23 07:13 36.7 C 61 18 142/86 H 99 Room Air 08/13/23 02:31 36.6 C 60 18 140/88 98 Room Air 08/12/23 23:54 68 Laboratory Results CBC and chemistry reviewed PG Care Time/CCT Total # of Minutes Spent Total Time Spent with Patient: Total time spent is greater than 50% in coordination of care (as documented) at patient's floor/unit and/or counseling patient: Coding Level of Care Code 08426 SUB INP/OBS CARE 2/35MIN Diagnoses Symptomatic anemia D64.9 Ulcerative colitis with rectal bleeding K51.911 Ulcerative colitis location: unspecified ulcerative colitis location Atrial fibrillation, unspecified type I48.91 Atrial fibrillation type: unspecified Hyponatremia E87.1 (2) Ulcerative colitis with rectal bleeding Ulcerative colitis location: unspecified ulcerative colitis location Qualified Code(s): K51.911 - Ulcerative colitis, unspecified with rectal bleeding (3) Atrial fibrillation Atrial fibrillation type: unspecified Qualified Code(s): I48.91 - Unspecified atrial fibrillation
[2023-08-13] MEDS: ACETAMINOPHEN 500 MG TAB PO SCH (12:57)
[2023-08-14] MEDS: MELATONIN 3 MG TAB PO PRN (03:10)
[2023-08-14 07:49] LABS: Hematocrit (blood only) 30.7 % (37.0-47.0); Hemoglobin 9.1 g/dl (12.0-16.0); Mean Corpuscular Hemoglobin 23.8 pg (25.0-34.0); Mean Corpuscular Hgb Conc 29.6 g/dL (32.0-36.0); Mean Corpuscular Volume 80.2 fL (80.0-100.0); Mean Platelet Volume 8.9 fL (9.4-12.4); Nucleated RBC # (auto) 0.03 K/uL (0.00-0.12); Nucleated RBC % (auto) 0.3 %; Platelet Count 277 K/uL (130-400); RDW Coefficient of Variation 23.7 % (11.5-14.5); Red Blood Count 3.83 M/uL (4.20-5.40); White Blood Count 9.84 K/ul (4.8-10.8)
[2023-08-14 08:12] LABS: Albumin Globulin Ratio 0.7 (0.9-2); Albumin Level 2.6 gm/dl (3.4-5.0); Bilirubin,Total 0.2 mg/dl (0.2-1.0); Calcium 8.3 mg/dl (8.6-10.3); Creatinine Clr Calc Pharmacy 79.2 ml/min; Est GFR (African American) 110.2 ml/min; Est GFR (Non-African American) 95.1 ml/min; Globulin 3.6 gm/dl (2.5-4.0); Potassium 3.6 mmol/L (3.5-5.1); Total Protein 6.2 gm/dl (6.0-8.3)
--- NOTE | 2023-08-14 09:39 | Communication Note ---
Date of Service: August 14, 2023 [facility] was approved. CCP to reach out to arrange. Patient was updated. Notes she is feeling improved, hopeful and is read for discharge. Please refer to pr evmiesha documentation regarding her tapering steroid course. Will need close GI follow up with her established GI team. Thank you for allowing us to participate in the care of this patient. Please call with any acute changes, questions or concerns. Please see addendum below with additional recommendation from my supervising physician.
--- NOTE | 2023-08-14 13:19 | Discharge Summary ---
Discharge Summary Date of Service August 14, 2023 Principal Dx & Hospital Course #1 = Principal Diagnosis (1) Symptomatic anemia: Hgb 4.5 on arrival to ED on 08/09/2023. She was experiencing SOB, dyspnea on exertion, fatigue, BRBPR. She was also consuming a large amount of NSAIDs, up to 9 Advil per day for her abdominal pain but endorsed no melena, N/V. -s/p 3 units PRBCs -dose of IV Venofer given 08/10 due to iron deficiency anemia. Second dose 08/12 - GI recommending weekly transfusions - will defer to outpatient GI to order - CTAP 08/08: consistent with UC flare and negative for any other acute findings. -evening of 08/09, patient reported more severe abdominal pain. Ordered KUB which reviewed and revealed concerning findings of ileus but no free air visualized Pain control switched to scheduled tylenol and oxycodone prn. Morphine discontinued. Patient tolerating regular diet. Hgb stable at 9. - repeat CBC ordered for 1 week post discharge (2) Ulcerative colitis with rectal bleeding: Patient with previous diagnosis of UC and follows with [facility]. Patient currently awaiting [facility] approval. She was previously on mesalamine but did not feel it helped her symptoms so she stopped taking it. -s/p colonoscopy 07/2022: left sided UC. inflammation found from rectum to descending colon (severe) GI Consulted . - Steroid taper starting at prednisone 40mg daily - weaning by 5mg weekly - Calcium and Vit D supplementatio started - GI office working on [facility] approval - was approved today and in the process of being scheduled -Avoid NSAIDs completely moving forward (3) Atrial fibrillation: Per patient, she was diagnosed with new onset A fib in 02/2023. She was started on anticoagulation but then developed large GI bleed at [facility] in [place]. -Hold anticoagulation in event of ongoing GI bleeding -Consider Holter monitor upon discharge and cardiology discussion regarding risks/benefits of systemic anticoagulation - has followed with [facility] cardiology in the past but would prefer not to return - 30 day event monitor ordered and follow up with [facility] - continue metoprolol, SR on monitor (4) Hyponatremia: Likely due to dehydration and malnourishment. Oral intake has been very poor with ongoing GI issues. 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 Seen by GI, [facility] approved for outpatient. She is discharged with first 3 weeks of her steroid taper (defer to outpatient GI for continued taper). received IV iron x2 Recheck CBC in one week Establish with cardiology for her afib and 30 day event monitor to determine risk for anticoagulation moving forward. No anticoagulation at discharge as still having some bleeding with UC flare Medication Changes From Visit Prednisone taper Ca and Vit D Admission HPI Per Admitting Provider Shona is a 62-year-old female with a past medical history significant for ulcerative colitis (has not yet started Entyvio transfusions due to multiple social/insurance issues over the past year), hypothyroidism, and reported diagnosis of atrial fibrillation at an outside hospital who was sent to the [facility] ED from [facility] on 08/09/2023 due to ongoing complaints of shortness of breath, ongoing rectal bleeding, and malaise. She was noted to be tachycardic on arrival at 102 but otherwise stable. Labs are significant for hemoglobin of 4.5 (down from 11.4 as of 08/08/2022), hematocrit of 17, MCV of 68, MCHC of 25, platelet count of 610, reticulocyte percentage of 3.7, sodium of 132, iron of 16, unsaturated iron binding capacity of 374. Chest x-ray was read as negative for acute findings. CT of the abdomen pelvis with IV Contrast was read as consistent with ulcerative colitis flare, but was read as otherwise negative for acute findings. EKG shows normal sinus rhythm with an age undetermined inferior infarct but was negative for acute ST segment or T wave changes. Prior to admission the patient was consented for blood and ordered on initial 3 units of packed red blood cells to be transfused. Patient was lying in bed at time of exam no acute distress, she appears very pale, her is sitting bedside, history is obtained from both. She explains that she had stopped taking her mesalamine because she did not feel as though it was helping. She reports that she was admitted to an outside hospital at the beginning of February 2023 and was diagnosed with new onset atrial fibrillation. She was reportedly started on anticoagulation and had a large GI bleed shortly after while in [place]. She has been off anticoagulation since. She confirms she has not been on any treatment for ulcerative colitis since beginning of this year as she has evidence for insurance issues. She has been having ongoing lower abdominal pain consistent with previous UC flares. When asked what she was using for pain control she explains that she tried Tylenol first but this was ineffective. She and her explained that the patient has been taking approximately 9 tabs of Advil daily for at least the past 2 weeks. I explained to her that she needs to avoid all NSAIDs with her history, she expressed understanding. Denies recent fever, chills, chest pain, cough, dysuria, hematuria, melena, and recent trauma. She has been experiencing significant dyspnea on exertion and bright red blood in her stool. She confirms multiple times that she has not had melanotic/dark stool. Denies recent nausea/vomiting/hematemesis. She is a full code and her is her primary decision-maker if she cannot make decisions for self. Please refer to Dr. Reyes's attestation for any changes to the treatment plan Discharge Exam General: NAD, VS as above Resp: normal respiratory effort, lungs clear to auscultation CV: RRR, no murmur, Abd: normal bowel sounds, tenderness much improved from yesterday Extremities: Moves all extremities, no edema Neuro: A&O x3, Updated Medication List Medication Instructions Recorded Confirmed Type albuterol sulfate 90 mcg/actuation 1 inh inhalation QID PRN SHORT OF 04/29/18 08/09/23 History breath activated powder inhaler BREATH levothyroxine 50 mcg tablet 50 mcg PO QAM 05/24/20 08/09/23 History fexofenadine 60 mg-pseudoephedrine 1 tab PO Q12H PRN seasonal 08/08/22 08/09/23 History ER 120 mg tablet,ext.release,12 hr allergies (Anna-D 12 Hour) dextroamphetamine-amphetamine 20 20 mg PO BID PRN When Working 08/09/23 08/09/23 History mg tablet dicyclomine 10 mg capsule 20 mg PO QID PRN Abdominal Pain 08/09/23 08/09/23 History famotidine 20 mg tablet 20 mg PO BID 08/09/23 08/09/23 History metoprolol tartrate 50 mg tablet 50 mg PO BID 08/09/23 08/09/23 History (Lopressor) pantoprazole 40 mg tablet,delayed 40 mg PO QAM 08/09/23 08/09/23 History release vedolizumab 300 mg intravenous 0 mg IV Q8WK 08/09/23 08/09/23 History solution (Entyvio) acetaminophen 500 mg tablet 1,000 mg (2 x 500 mg) PO Q8 #30 08/14/23 Rx (Tylenol Extra Strength) tabs calcium 600 mg-D3 800 unit-mag11 1 tab PO BID #30 tabs 08/14/23 Rx 50 [id number]-hfpd-duavcf-sd-s.borat tablet (Caltrate 600-D Plus Minerals) prednisone 10 mg tablet See Taper PO DIRECTED #65.5 tabs 08/14/23 Rx Hospital Stay Data Consultations 08/09/23 18:40 ED Decision to Admit Stat 08/09/23 19:21 Consult Gastroenterology Routine 08/11/23 09:08 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 Comparison: None available at the time of this dictation. FINDINGS: No lines and tubes are seen. The cardiomediastinal silhouette is normal. The lungs are clear. No evidence of pleural effusion or pneumothorax. IMPRESSION: No acute chest disease. ACT 112: Negative or not required by law. Electronically signed by: Saul Bryan M.D. 08/09/2023 5:13 PM Abdomen/Pelvis CT 08/09/23 17:54 CT abd pelvis IV con only CLINICAL HISTORY: anemia, UC TECHNIQUE: Helical axial images of the abdomen and pelvis were obtained and displayed. Automated dose lowering techniques and/or adjustment according to patient size were utilized for this exam. This exam was performed with intravenous contrast. CT DOSE: 560.1 mGy.cm COMPARISON: None available at the time of this dictation. FINDINGS: Lower chest: No acute abnormality. Liver: Unremarkable. No focal lesions are seen. Gallbladder and biliary tree: No calcified gallstones. Normal caliber wall. No intra- or extrahepatic biliary ductal dilation. Pancreas: Unremarkable, no focal lesions. Spleen: Unremarkable. Adrenals: Unremarkable. Kidneys and ureters: There is wedge-shaped hypoenhancement in the right kidney, possibly associated with cortical scars. Bladder: Unremarkable. Reproductive organs: Unremarkable. Bowel: Patient was then thickened colonic johnson are seen from the rectum to the cecum. Lymph nodes Retroperitoneal: Unremarkable. Pelvic: Unremarkable. Mesenteric: Subcentimeter lymph nodes are noted. Peritoneum: Increased vascularity is seen about the colon. No free fluid. Vessels: Unremarkable. Abdominal wall: Unremarkable. Bones: Degenerative changes in the visualized spine. IMPRESSION: Findings compatible with colitis, likely inflammatory in this patient with history of ulcerative colitis. ACT 112: Negative or not required by law. Electronically signed by: Saul Brayn M.D. 08/09/2023 7:00 PM KUB X-Ray 08/10/23 17:58 KUB HISTORY: Acute generalized abdominal pain worsening abdominal pain COMPARISON: CT 08/09/2023 FINDINGS: Air-filled loops of large and small bowel are noted with small bowel loops measuring up to 3.4 cm. No renal calculi. No ureteral calculi. No pneumoperitoneum or pneumatosis. Mild lumbar levoscoliosis. No fracture. IMPRESSION: Air-filled loops of large and small bowel suggestive of probable ileus. No pneumoperitoneum. ACT 112: Negative or not required by law. The above report was generated using voice recognition software. It may contain grammatical, syntax or spelling errors. Electronically signed by: Kali Núñez M.D. 08/10/2023 7:00 PM Pending Results Patient Have Any Pending Studies at Discharge: No Discharge Instructions Given to Patient (Per Discharging Provider) Ms. Leonard, You are hospitalized after having weakness shortness of breath and fatigue, this was likely related to your very low hemoglobin level caused by bleeding from your ulcerative colitis. You received 3 units of blood and 2 iron infusions to help raise your hemoglobin levels and those have remained stable. I have ordered a repeat CBC (blood work) to have repeated to check your hemoglobin level in 1 week - these results will go to your primary care doctor. It is very important that you follow-up with your GI doctor. They will be prescribing the rest of your steroid taper as well as helping you continue to get the infusions and further treatment for your ulcerative colitis. They can also help determine if you need more iron infusions scheduled. Also recommend calcium and vitamin D supplement while you are on the steroids. I have sent in a prescription to the pharmacy however this may not be covered by her insurance. 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 Recommendations: * GI follow-up, continue with planning for Entyvio injection * steroid taper (the first 3 weeks have been prescribed additional taper will need to be prescribed by GI) * avoid all NSAIDsibuprofen, Aleve, Motrin. * Tylenol is safe to take. Would continue with scheduled Tylenol [id number] while your current flare is still improving. Follow the instructions on the bottle. * Follow-up with cardiology - you have been referred to [facility] cardiology and another 30-day heart monitor has been ordered. Please try to obtain your prior records to take with you to your cardiology appointment when it is scheduled Activity: You can do normal everyday activities as your body allows. Take rest breaks if you feel tired. Do not overexert. Stop activity if you have pain, shortness of breath or feel dizzy. Follow-up appointments: Make an appointment with your primary care physician within one week of discharge. A copy of this summary will be sent to them. Every time you see your primary care physician, or any other doctor, bring your medication list, and a list of questions. CONTACT YOUR PRIMARY CARE PROVIDER if you experience any of the following: Shortness of breath or difficulty breathing Fevers or chills Feeling tired with normal activity or experiencing dizziness or fainting Difficulty following your treatment plan, or difficulty taking medications CALL 911 OR GO TO THE EMERGENCY DEPARTMENT if you experience any of the following: Severe abdominal pain or nausea/vomiting Severe chest pain, or chest pain that radiates (moves) to your jaw or arm Sudden, severe shortness of breath or difficulty breathing Thank you for allowing us to participate in your care. Total Time Total Time Spent Total Time Spent (In Minutes): Time spend day of discharge 40 minutes including direct patient care, medication reconciliation, documentation, review of labs and images, and coordination of care. Supervising Physician Co-Signing Physician Notes JENNY Supervision Note: I personally saw and examined the patient. I verified all espana points and agree with JENNY Calderon with the following exceptions and/or additions: S-patient feeling much improved. Still having very small amounts of blood with her frequent bowel movements and some left-sided abdominal pain but overall greatly improved. Hemoglobin remaining stable in the 9 range. She already has close follow-up planned with GI and her biologic drug just got approved. O- Vitals reviewed Gen: AAOx3, NAD HEENT: Anicteric sclerae, EOMI CV: RRR no mgr nl S1S2 Pulm: CTAB no wcr Abd: +BS soft mild tenderness to palpation in LLQ without guarding or rebound ND no masses or hernias Ext: No edema, 2+ DP pulses Skin: No rashes, warm/dry Neuro: Full strength throughout CBC reviewed A/Q-28-qvmw-old female here with ulcerative colitis flare and severe symptomatic anemia with hemoglobin of 4.6 on admission. Given transfusions of blood and IV iron. Started on high-dose steroids for ulcerative colitis while awaiting biologic drug through GI. Stable for discharge to home Coding Level of Care Code 44695 INP/OBS DISCH >30 MIN Diagnoses Symptomatic anemia D64.9 Ulcerative colitis with rectal bleeding K51.911 Ulcerative colitis location: unspecified ulcerative colitis location Atrial fibrillation, unspecified type I48.91 Atrial fibrillation type: unspecified Hyponatremia E87.1
== END 2023-08-14 15:16 | disposition home or self-care (01) | DRG 386 ==
LOC: ED 16:35 → 2E 19:17 → SUATTDRO 19:17 → 2E 21:57 → 3N 08-13 21:22